=== PATIENT | male | born 1960 | race Caucasian/White ===

== ENCOUNTER 2017-09-30 12:20 | Inpatient (IN) | payer OTHER ==
[~2017-09-30] VITALS: Ht 180.3 cm; Wt 93.9 kg
[2017-09-30] VITALS (11 sets, daily range): BP systolic 115–159; BP diastolic 60–124
[2017-09-30 13:01] LABS: ABSOLUTE BASOPHIL COUNT 0 /CUMM (0.0-0.2); ABSOLUTE EOSINOPHIL COUNT 0.1 /CUMM (0.0-0.7); ABSOLUTE GRANULOCYTE CT 3.8 /CUMM (1.4-6.5); ABSOLUTE LYMPH COUNT 1.2 /CUMM (1.2-3.4); ABSOLUTE MONOCYTE COUNT 0.5 /CUMM (0.10-0.60); BASOPHIL % 0.5 % (0.0-2.0); EOSINOPHIL % 1.7 % (0-5); GRANULOCYTE % 67.5 % (42.2-75.2); HEMATOCRIT 50.3 % (42-52); MEAN CORPUSCULAR HGB 35.3 PG (27.0-31.0); MEAN CORPUSCULAR HGB CONC 34.8 G/DL (33.0-37.0); MEAN CORPUSCULAR VOLUME 101.3 FL (80.0-94.0); MEAN PLATELET VOLUME 6.4 FL (7.4-10.4); PLATELET COUNT 124 /CUMM (130-400); RBC DISTRIBUTION WIDTH 14.3 % (11.5-14.5); RED BLOOD CELL CT 4.96 /CUMM (4.70-6.10); WHITE BLOOD CELL COUNT 5.6 /CUMM (4.8-10.8)
--- NOTE | 2017-09-30 13:01 | ED GENERAL ADULT ---
History of Present Illness General Chief Complaint: ETOH/Drug Related Complaint Stated Complaint: PT REQUESTING DETOX Source: patient Exam Limitations: no limitations Vital Signs & Intake/Output Vital Signs & Intake/Output Vital Signs Date Time Temp Pulse Resp B/P B/P Pulse O2 O2 Flow FiO2 Mean Ox Delivery Rate 10/02 0941 98.0 89 22 142/100 96 Room Air 10/02 0937 98.0 89 22 148/100 10/02 0600 85 26 127/72 10/02 0400 98.0 75 26 118/70 10/02 0400 95 Room Air 10/02 0200 100 24 135/93 10/02 0000 98.0 82 16 120/70 10/02 0000 95 Room Air 10/02 0000 98.0 82 16 120/70 95 Room Air 10/01 2300 84 20 140/91 10/01 2200 84 22 141/81 10/01 2000 98.9 88 18 122/84 10/01 2000 98.9 88 18 122/84 94 Room Air 10/01 1800 90 20 130/80 10/01 1600 98.8 80 18 130/88 10/01 1600 98.8 80 18 130/88 93 Room Air 10/01 1400 82 16 139/90 10/01 1300 80 18 138/95 10 1200 97.9 84 22 140/98 03 1200 97.9 84 22 140/98 97 Room Air ED Intake and Output 10/02 0000 10/01 1200 Intake Total 1779 983 Output Total 750 375 Balance 1029 608 Intake, IV 659 923 Intake, Oral 1120 60 Number 0 0 Bowel Movements Output, Urine 750 375 Allergies Coded Allergies: NO KNOWN ALLERGIES (NONE 09/30/17) Triage Note: REQUESTING DETOX FROM ETOH. PT STATES LAST DRINK WAS LAST NIGHT. HASN'T TRIED DETOX BEFORE. DENIES SI/HI Triage Nurses Notes Reviewed? yes Onset: Abrupt Duration: day(s): (1-2), constant, continues in ED, getting worse Timing: single episode today Injury Environment: home Severity: moderate, severe No Modifying Factors: none HPI: 56-year-old male past medical history of alcohol dependence presents requesting alcohol detox. Patient states that he has been drinking daily and heavily for the past year or so. He states that he usually drinks about a half gallon of bourbon daily. Over the past 3 weeks he has tried to cut back on his drinking and is switched to drinking wine. He states that his last drink was yesterday he drank several glasses of water and a glass of bourbon. He denies any history of withdrawal seizures but states it is never detoxed completely before. He states that he feels like he has "come close" to seizures. He denies any drug use. No suicidal or homicidal ideation. No chest pain shortness of breath hemoptysis lower extremity edema recent surgery recent trauma. He does not take any medications. Has not seen a doctor in years. Currently he reports that he feels very anxious and tremulous. No nausea vomiting sweats or chills. No hallucinations. No headaches. (Dany Gomez) Reconcile Medications No Known Home Medications (Vinh NGUYEN,Radha) Past History Travel History Traveled to [place] past 21 day No Medical History Any Pertinent Medical History? see below for history Psychiatric: alcohol dependence Surgical History Surgical History: none Psychosocial History What is your primary language Macedonian Tobacco Use: Quit >30 days ago ETOH Use: heavy use Illicit Drug Use: denies illicit drug use Family History Hx Contributory? No (Dany Gomez) Review of Systems Review of Systems Constitutional: Reports: no symptoms. EENTM: Reports: no symptoms. Respiratory: Reports: no symptoms. Cardiovascular: Reports: no symptoms. GI: Reports: no symptoms. Genitourinary: Reports: no symptoms. Musculoskeletal: Reports: no symptoms. Skin: Reports: no symptoms. Neurological/Psychological: Reports: see HPI, anxiety. Hematologic/Endocrine: Reports: no symptoms. Immunologic/Allergic: Reports: no symptoms. All Other Systems: Reviewed and Negative (Dany Gomez) Physical Exam Physical Exam General Appearance: well developed/nourished, no apparent distress, alert, awake Head: atraumatic, normal appearance Eyes: Bilateral: normal appearance, PERRL, EOMI. Ears, Nose, Throat: normal pharynx, normal ENT inspection, hearing grossly normal Neck: normal inspection, supple, full range of motion Respiratory: normal breath sounds, chest non-tender, no respiratory distress, lungs clear Cardiovascular: regular rate/rhythm, normal peripheral pulses Peripheral Pulses: 2+ radial (R), 2+ radial (L) Gastrointestinal: normal bowel sounds, soft, non-tender, no organomegaly Back: normal inspection, normal range of motion Extremities: normal inspection, normal range of motion, no edema Neurologic/Psych: no motor/sensory deficits, awake, alert, oriented x 3, anxious , diffuse tremors Skin: intact, normal color, warm/dry Core Measures ACS in differential dx? No CVA/TIA Diagnosis: No Sepsis Present: No Sepsis Focused Exam Completed? No (Dany Gomez) Progress Differential Diagnoses I considered the following diagnoses in my evaluation of the patient: [Alcohol intoxication, alcohol withdrawal, drug intoxication, drug withdrawal, electrolyte abnormality] Plan of Care: Orders Procedure Date/time Status ICU LAB BUNDLE 10/02 0500 Complete CBC WITHOUT DIFFERENTIAL 10/02 0500 Complete FingerStick- Glucose 10/01 UNK Active Current Medications Sig/Marilee Start time Last Medication Dose Stop Time Status Admin Chlordiazepoxide HCl 75 MG Q4H 10/02 0400 AC 10/02 (Librium) 0935 Lorazepam 0 Q1P PRN 10/01 2300 AC 10/02 (Ativan) 1012 Omeprazole 40 MG DAILY AC 10/01 1308 AC 10/02 (Prilosec) 0642 Enoxaparin Sodium 40 MG DAILY 10/01 1000 AC 10/02 (Lovenox) 0936 Folic Acid 1 MG DAILY 10/01 1000 AC 10/02 (Folic Acid) 0935 Multivitamins 1 TAB DAILY 10/01 1000 AC 10/02 (Theragran Vitamins) 0935 Laboratory Tests 10/02/17 0355: Anion Gap 8, Estimated GFR > 60, Glucose 107 H, Calcium 8.8, Phosphorus 3.7, Magnesium 1.7, Total Bilirubin 1.1, AST 152 H, ALT 173 H, Albumin 3.2 L, CBC w Diff NO MAN DIFF REQ, RBC 3.99 L, MCV 101.9 H, MCH 35.6 H, MCHC 34.9, RDW 14.1, MPV 6.5 L, Gran % 62.3, Lymphocytes % 25.1, Monocytes % 9.8 H, Eosinophils % 2.4, Basophils % 0.4, Absolute Granulocytes 2.6, Absolute Monocytes 0.4, Absolute Eosinophils 0.1, Absolute Basophils 0 Patient seen and evaluated. He is requesting alcohol withdrawal. He has never withdrawn before. He denies any known history of withdrawal seizures. Serum alcohol level is negative. Initial CIWA is 14. Patient was medicated with 2 mg of by mouth Ativan. Patient reported only minimal improvement with this and another CIWA score came back at 15 to use medicated with 2 mg IV and 2 by mouth. Patient received another 2 mg of IV Ativan after this for another repeat CIWA 15. IV fluids also ordered. Blood work was obtained and is within normal limits other than elevated LFTs. Troponin is negative. Patient will require admission to the hospital for further evaluation and treatment of alcohol withdrawal. He'll require IV Ativan, CIWA exams, monitoring of vital signs, medication adjustment, IV fluids. Case discussed with Dr. Justice she agrees (Dany Gomez) 6:30 PM PATIENT MORE CONFUSED. PERSISTENTLY TACHYCARDIC. ATIVAN DRIP ORDERED. PATIENT UPGRADED TO ICU. D/W DR BARCENAS. (Vinh NGUYEN,Radha) Initial ED EKG: normal sinus rhythm, left atrial abn, incomplete rbbb, lafb (Dany Gomez) Departure Departure Disposition: STILL A PATIENT Condition: Stable Clinical Impression Primary Impression: Alcohol withdrawal Qualifiers: Complication of substance-induced condition: uncomplicated Qualified Code: F10.230 - Alcohol dependence with withdrawal, uncomplicated Referrals: Patient Has No Primary Care Dr (PCP/Family) Departure Forms: Customer Survey General Discharge Information Admission Note Spoke With: Kirk Barron MD Documentation of Exam: Documentation of any treatments & extenuating circumstances including Concerns Regarding Discharge (functional status, medication knowledge or non-compliance, living conditions, etc.) that warrant an admission rather than observation: [IV Ativan, CIWA exams, monitoring of vital signs, IV fluids, serial labs] (Dany Gomez) Departure Prescriptions: Current Visit Scripts No Known Home Medications PA/DIRECTOR DANCE Co-Sign Statement Statement: ED Attending supervision documentation- [X] I saw and evaluated the patient. I have also reviewed all the pertinent lab results and diagnostic results. I agree with the findings and the plan of care as documented in the PA's/DIRECTOR DANCE's documentation. [X] I have reviewed the ED Record and agree with the PA's/DIRECTOR DANCE's documentation. [] Additions or exceptions (if any) to the PAs/DIRECTOR DANCE's note and plan are summarized below: [Patient with increasing confusion despite iv ativan boluses. still tachycardic in 110's. will start on ativan drip adn admit to iCU. no history of delerium tremens or seizures.] (Radha Justice MD) Critical Care Note Critical Care Note Critical Care Time: non-applicable (Dany Gomez) Critical Care Note Critical Care Time: 30-74 min (Radha Justice MD) Statement: ED Attending supervision documentation- [X] I saw and evaluated the patient. I have also reviewed all the pertinent lab results and diagnostic results. I agree with the findings and the plan of care as documented in the PA's/DIRECTOR DANCE's documentation. [X] I have reviewed the ED Record and agree with the PA's/DIRECTOR DANCE's documentation. [] Additions or exceptions (if any) to the PAs/DIRECTOR DANCE's note and plan are summarized below: [] (Radha Justice MD) Critical Care Note Critical Care Note Critical Care Time: non-applicable (Dany Gomez)
--- NOTE | 2017-09-30 18:07 | History & Physical ---
General Information and HPI MD Statement: I have seen and personally examined ANGELIA PRECIADO and documented this H&P. The patient is a 56 year old M who presented with a patient stated chief complaint of [requesting detox]. Source of Information: patient Exam Limitations: no limitations History of Present Illness: Patient is 56 y M with PMH of alcohol abuse, presented to the ED requesting for alcohol detox. Patient reported increased amount of drinking for the last year, He noted he drinks about a half gallon of bourbon daily. He denied any any alcohol related seizure as he never really stopped drinking but noted to "become close" to seizure before. Last drink was yesterday and was smoking other drugs Baseline Allergies/Medications Allergies: Coded Allergies: NO KNOWN ALLERGIES (NONE 09/30/17) Past History Travel History Traveled to [place] past 21 day No Medical History Psychiatric: alcohol dependence Surgical History Surgical History: none Past Family/Social History Psychosocial History ETOH Use: heavy use Illicit Drug Use: denies illicit drug use Review of Systems Review of Systems Constitutional: Reports: see HPI. Exam & Diagnostic Data Last 24 Hrs of Vital Signs/I&O Vital Signs Date Time Temp Pulse Resp B/P B/P Pulse O2 O2 Flow FiO2 Mean Ox Delivery Rate 09/30 1647 114 18 136/93 97 Room Air Room Air 09/30 1646 97.8 114 18 136/93 09/30 1530 97.8 122 18 142/94 09/30 1456 97 Room Air Room Air 09/30 1441 97.5 118 18 136/90 09/30 1435 97.4 118 20 136/90 96 Room Air Room Air 09/30 1310 97.5 95 20 144/96 97 Room Air Room Air 09/30 1300 97.2 116 18 159/124 09/30 1231 97.2 116 20 159/124 98 Room Air Intake & Output 09/30 1600 09/30 0800 09/30 0000 Intake Total 1000 Output Total Balance 1000 Intake, IV 1000 Patient 190 lb Weight Weight Reported by Patient Measurement Method Assessment/Plan Assessment: VS, Ph Ex at admission: CIWA 14-15 No fever, BP 112 59/124, WA 116, RR 20 Labs at admission: Hgb 17.5, MCV 101.3, PLT 124, BEP insignificant, Niko T:2.8 , D pending, AST 2369 , ALT 272, ALK 104 U tox positive for Moriyama, serum alcohol less than 10 uA: keton positive, nit +, Niko +, Hgb traced Imagings at admission: No imaging Patient was admitted to [facility] floor for management of following conditions: Core Measures/Misc (04/10) Cerebrovascular Accident CVA/TIA Diagnosis: No
--- NOTE | 2017-09-30 19:17 | History & Physical ---
Chuck Mares 09/30/171916: General Information and HPI MD Statement: I have seen and personally examined ANGELIA PRECIADO and documented this H&P. Source of Information: patient Exam Limitations: no limitations History of Present Illness: This is a 56-year-old gentleman with past medical history significant for alcohol use disorder presented to the hospital requesting alcohol detox. According to the patient, he usually drinks about half a gallon of bourbon daily. He started to decrease amount of his drinking over the past 3 weeks and started to experience withdrawal symptoms. His last drink was yesterday. He does not report any history of alcohol withdrawal seizures. He has not been following with any physician for the past 10 years and does not have any other diagnosed medical history. However, he states that over the past few days he has been measuring his blood pressure at home and the readings are usually in the 160s systolic which were higher than his usual. He does not feel depressed and denies any suicidal or homicidal ideation. At the time of our interview, he feels very shaky and anxious. He denies any nausea, vomiting, headache, dizziness, lightheadedness, abdominal pain, urinary symptoms. Denies having any visual or auditory hallucinations. He quit smoking 7 weeks ago. Denies illicit drug use, tried marijuana for the first time today. His son is present at bedside. Allergies/Medications Allergies: Coded Allergies: NO KNOWN ALLERGIES (NONE 09/30/17) Home Med list No Known Home Medications Past History Travel History Traveled to [place] past 21 day No Medical History Psychiatric: alcohol dependence Surgical History Surgical History: none Past Family/Social History Psychosocial History ETOH Use: heavy use Illicit Drug Use: denies illicit drug use Review of Systems Review of Systems Constitutional: Reports: no symptoms. EENTM: Reports: no symptoms. Denies: blurred vision, double vision, visual changes. Cardiovascular: Denies: chest pain, edema, orthopena, palpitations, peripheral edema, syncope. Respiratory: Reports: no symptoms. Denies: cough, hemoptysis, orthopnea, short of breath, sputum production, stridor, wheezing. GI: Reports: no symptoms. Denies: abdominal pain, bloating, constipation, diarrhea, distention, bowel incontinence, melena, nausea, bloody stool, changes in stool, vomiting, steatorrhea. Genitourinary: Reports: no symptoms. Musculoskeletal: Reports: no symptoms. Skin: Reports: no symptoms. Neurological/Psychological: Reports: no symptoms. Hematologic/Endocrine: Reports: no symptoms. Immunologic/Allergic: Reports: no symptoms. Exam & Diagnostic Data Last 24 Hrs of Vital Signs/I&O Vital Signs Date Time Temp Pulse Resp B/P B/P Pulse O2 O2 Flow FiO2 Mean Ox Delivery Rate 09/30 2114 98.5 89 18 120/76 97 Room Air Room Air 09/30 2032 97.8 88 18 115/78 09/30 2032 98.8 88 29 115/78 97 Room Air Room Air 09/30 1936 98.0 110 18 138/90 09/30 1835 98.0 111 18 134/90 09/30 1725 97.9 118 18 136/90 09/30 1647 114 18 136/93 97 Room Air Room Air 09/30 1646 97.8 114 18 136/93 09/30 1530 97.8 122 18 142/94 09/30 1456 97 Room Air Room Air 09/30 1441 97.5 118 18 136/90 09/30 1435 97.4 118 20 136/90 96 Room Air Room Air 09/30 1310 97.5 95 20 144/96 97 Room Air Room Air 09/30 1300 97.2 116 18 159/124 09/30 1231 97.2 116 20 159/124 98 Room Air Intake & Output 09/30 1600 09/30 0800 09/30 0000 Intake Total 1000 Output Total Balance 1000 Intake, IV 1000 Patient 190 lb Weight Weight Reported by Patient Measurement Method Physical Exam General Appearance Alert, Oriented X3, Mild Distress, tremulous Skin No Rashes, No Breakdown, No Significant Lesion Skin Temp/Moisture Exam: Warm/Dry Sepsis Skin Exam (color): Normal for Ethnicity HEENT Atraumatic, PERRLA, EOMI, Mucous Membr. moist/pink Neck Supple, No JVD, No thryomegaly, +2 Carotid Pulse wo Bruit, No LAD Lymphatic Cervical nl Cardiovascular Regular Rate, Normal S1, Normal S2, No Murmurs, Gallops, Rubs Lungs Clear to Auscultation, Normal Air Movement Abdomen Normal Bowel Sounds, Soft, No Tenderness, No Hepatospenomegaly, No Masses Neurological Normal Speech, Strength at 5/5 X4 Ext, Normal Tone, Sensation Intact, Cranial Nerves 3-12 NL, Reflexes 2+ Extremities No Clubbing, No Cyanosis, No Edema, Normal Pulses, No Tenderness/ Swelling Vascular Normal Pulses, Pulses Symmetrical Sepsis Peripheral Pulse Location: Dorsalis Pedis Diagnostic Data EKG Results Sinus rhythm, rate 96,? Incomplete RBBB and LAFB Other Results Abdominal US: IMPRESSION: Hepatic steatosis. Borderline enlarged. Multiple echogenic foci in the spleen most likely reflect splenic calcifications typically related to prior granulomatous disease Assessment/Plan Assessment: This is a 56-year-old gentleman with past medical history significant for alcohol use disorder presented to the hospital requesting alcohol detox. He was started on Ativan drip in the ED. Was noted to have transaminitis. Problem list #Alcohol use disorder: Requesting detox #Transaminitis, abdominal ultrasound revealing hepatic steatosis #Splenic calcification #EKG revealing incomplete RBBB and LAFB Plan: As Ranked By This Provider Problem List: 1. Alcohol withdrawal Qualifiers Complication of substance-induced condition: uncomplicated Qualified Code: F10.230 - Alcohol dependence with withdrawal, uncomplicated Core Measures/Misc (04/10) Acute Coronary Syndrome ACS Diagnosis: No Congestive Heart Failure Congestive Heart Failure Diagnosis No Cerebrovascular Accident CVA/TIA Diagnosis: No VTE (View Protocol) VTE Risk Factors Age>40 No Mechanical VTE Prophylaxis d/t N/A MechProphylax Ordered No VTE Pharm Prophylaxis d/t NA PharmProphylax ordered Sepsis (View protocol) Sepsis Present: No Cassandra Manzo 10/01/17 0118: Attending MD Review Statement Attending Statement Attending MD Statement: examined this patient, discuss w/resident/PA/VALET MANAGER, agreed w/resident/PA/VALET MANAGER, discussed with family, reviewed EMR data (avail), reviewed images, amended to note Attending Assessment/Plan: CC: Alcohol detox PMH: kidney stones Patient was brought in ER by his son for all called detox. Patient has extensive alcohol history, has been drinking half a gallon of bourbon daily. Since last 3 weeks he tried to cut down on his alcohol intake on his own, last drink was yesterday, when patient's son went to see him today he did not appear appropriate, was appearing very anxious, shaky and son brought him to ER. He Never tried to detox in the past, he does not have history of alcohol related seizure. Patient denies chest pain, abdominal pain, nausea, vomiting, urinary burning, irritation, pelvic pain, headache and double vision and blurry vision. He had soft 2 bowel movements today " diarrhea". Patient states that he has been seeing things, is not specific about what, no eye dictated hallucinations, no suicidal or homicidal ideation. He had kidney stones in the past, the last episode 2001. He has not seen any physician in last 14 years, he is unaware of any medical problems. He smoked for 20 years, about half pack a day, quit 8 week back. No known drug allergies Vitals: T max 97.9, pulse 116, RR 20, blood pressure 159 on 124 on arrival improved to 144/96, saturating 98% on room air. On exam: A O 2 (patient is not oriented in time), cooperative, anxious, mild distress, tremors present, irrelevant talk, neck supple, JVD normal, no lymphadenopathy, mucosa dry, no focal neurological deficit, no dependent edema, no obvious skin rashes or inflammation CVS: S1-S2, RRR. RS: Clear to auscultate bilaterally. Abdomen: Soft, NT, ND, bowel sounds present. Abdomen ultrasound: Hepatic steatosis. Borderline enlarged. Multiple echogenic foci in the spleen most likely reflect splenic calcifications typically related to prior granulomatous disease Assessment and plan 56-year-old male with remote history of kidney stones and extensive alcohol history (more than half gallon hard liquor every day) presented in ER for all called detox. He appears Confused, not oriented in time, irrelevant talk, agitated, tremors and diaphoretic. His CIWA score ave been 14 - 17 in ER. He was persistently tachycardic while in ER. Patient was started on Ativan drip, will require ICU admission for close monitoring. Patient also has elevated bilirubin of 2.8, transaminitis (369, 272), macrocytosis 101.3, albumin 4.3 and INR 0.9. Patient appears to have mild steatohepatitis. Even though UA is positive for nitrites patient does not have any symptoms + Complicated alcohol withdrawal with delirium + All colics steatohepatitis with transaminitis and elevated bilirubin + Incomplete right bundle branch block on ECG onset of duration unclear - Admit to ICU - Every hourly vitals - Continue Ativan drip - Monitor CIWA scores - Continue high dose thiamine supplementation - Continue folic acid supplementation - Repeat ECG in a.m. - Check magnesium and phosphorus, today and tomorrow, replace if low - Repeat CBC, CMP in a.m. and INR - DVT prophylaxis - Adequate pain control - Continue oral diet - Critical care consult
[2017-09-30 20:50] LABS: PT 10.2 SEC (9.4-12.5); PTT 30 SEC (25-37)
--- NOTE | 2017-09-30 21:56 | ULTRASOUND REPORT ---
EXAMINATION: US ABDOMEN COMPLETE CLINICAL INFORMATION: Alcoholic cirrhosis hepatitis. Elevated transaminase. COMPARISON: None TECHNIQUE: Real-time imaging of the abdominal viscera. FINDINGS: PANCREAS: Obscured by bowel gas ABDOMINAL AORTA: The proximal segment is normal in caliber. INFERIOR VENA CAVA: Visualized portions are normal. LIVER: Borderline increased in size measuring 22 cm in length. Increased echogenicity compatible with steatosis. No focal abnormality. No intrahepatic or extrahepatic biliary dilatation GALLBLADDER: Only partially distended . No pericholecystic fluid gallbladder wall thickening or gallstones. COMMON BILE DUCT: Normal in caliber RIGHT KIDNEY: Normal. No hydronephrosis. No renal calculi or focal parenchymal lesions. LEFT KIDNEY: Normal. No hydronephrosis. No renal calculi or focal parenchymal lesions. SPLEEN: Multiple focal echogenic foci throughout the spleen likely reflecting calcifications. The spleen measures 13.5 cm in maximum dimension. FREE FLUID: None. IMPRESSION: Hepatic steatosis. Borderline enlarged. Multiple echogenic foci in the spleen most likely reflect splenic calcifications typically related to prior granulomatous disease
[2017-10-01] VITALS (15 sets, daily range): BP systolic 117–154; BP diastolic 79–102
--- NOTE | 2017-10-01 01:21 | Admission Certification ---
Admission Certification Certification Statement - As attending physician, I certify that at the time of - admission, based on clinical presentation, severity of - symptoms, need for further diagnostic testing and - therapeutic interventions, and risk of adverse outcomes - without in-hospital treatment, in my clinical assessment, - this patient requires an acute hospital stay for a minimum - of two nights or longer. I have also considered psychsocial - factors such as support system, advanced age, financial - issues, cognitive issues, and failed out-patient treatments, - past re-admission history, safety of patient, and lack of - compliance as applicable. Specific rationale supporting this admission is: severe alcohol withdrawal with delirium
--- NOTE | 2017-10-01 08:30 | PN- CRCU ---
Subjective HPI/Critical Care Issues: Seen and examined Alert awake slightly confused Afebrile In normal sinus rhythm On 4 mg of Ativan Blood pressure is normal Continues to be on intravenous fluids Adequate urine output SIGNIFICANT DATA Blood work reviewed Hemoglobin elevated MCV was elevated INR normal Liver enzymes elevated B12 normal Objective Current Medications: Current Medications Sig/Marilee Start time Last Medication Dose Route Stop Time Status Admin Ceftriaxone Sodium 2,000 MG DAILY 10/01 1000 AC IV Ceftriaxone Sodium 1,000 MG ONCE ONE 09/30 2345 DC 10/01 IV 09/30 2346 0015 Cyanocobalamin/ 1 BAG ONCE ONE 09/30 1900 DC 09/30 Thiamine/Pyridoxine IV 10/01 0259 1943 Dextrose/Water 1,000 ML Enoxaparin Sodium 40 MG DAILY 10/01 1000 AC SC Lorazepam 50 MG Q12H 10/01 1000 AC Dextrose/Water 500 ML IV Lorazepam 0 .STK-MED ONE 09/30 1849 DC PO Lorazepam 0 .STK-MED ONE 09/30 1833 DC .ROUTE Lorazepam 2 MG ONE ONE 09/30 1830 DC 09/30 IV 09/30 1831 1833 Lorazepam 50 MG ONCE ONE 09/30 1830 DC 09/30 Dextrose/Water 500 ML IV 09/30 1831 1943 Lorazepam See Dose Q1P PRN 09/30 1800 DC Insts (1) IV Lorazepam 2 MG Q6H 09/30 1800 DC 09/30 PO 1833 Lorazepam 0 .STK-MED ONE 09/30 1719 CAN .ROUTE Lorazepam 2 MG ONE ONE 09/30 1715 DC 09/30 IV 09/30 1716 1727 Lorazepam 2 MG Q2P PRN 09/30 1715 CAN IV Lorazepam 0 .STK-MED ONE 09/30 1542 DC PO Lorazepam 0 .STK-MED ONE 09/30 1542 DC .ROUTE Lorazepam 2 MG ONCE ONE 09/30 1530 DC 09/30 IV 09/30 1531 1547 Lorazepam 2 MG ONCE ONE 09/30 1530 DC 09/30 PO 09/30 1531 1547 Lorazepam 0 .STK-MED ONE 09/30 1335 DC PO Lorazepam 2 MG ONCE ONE 09/30 1330 DC 09/30 PO 09/30 1331 1332 Magnesium Sulfate 1 GM ONCE ONE 10/01 0215 DC 10/01 Dextrose/Water 100 ML IV 10/01 0614 0309 Sodium Chloride 1,000 ML BOLUS ONE 09/30 1745 DC / IV 09/30 1844 1833 Sodium Chloride 1,000 ML BOLUS ONE 09/30 1445 DC / IV 09/30 1544 1455 Thiamine HCl 200 MG BID 09/300 AC 10/01 PO 10/02 1001 0012 Dose Instructions: (1)Lorazepam: See admin criteria Vital Signs & I&O Last 24 Hrs of Vitals and I&O: Vital Signs Date Time Temp Pulse Resp B/P B/P Pulse O2 O2 Flow FiO2 Mean Ox Delivery Rate 10/01 0600 79 29 151/92 10/01 0400 96.3 80 28 129/84 10/01 0400 96 Room Air Room Air 10/01 0200 82 24 117/79 10/01 0000 97.2 79 25 119/84 03 0000 97 Room Air Room Air 09/30 2300 97.2 79 25 124/60 97 Room Air Room Air 09/30 2200 97.8 94 20 116/88 09/30 2200 92 Room Air Room Air 09/30 2115 98.5 89 18 120/76 97 Room Air Room Air 09/30 2033 97.8 88 18 115/78 09/30 2033 98.8 88 29 115/78 97 Room Air Room Air 09/30 1936 98.0 110 18 138/90 09/30 1835 98.0 111 18 134/90 09/30 1725 97.9 118 18 136/90 09/30 1647 114 18 136/93 97 Room Air Room Air 09/30 1646 97.8 114 18 136/93 09/30 1530 97.8 122 18 142/94 09/30 1456 97 Room Air Room Air 09/30 1441 97.5 118 18 136/90 09/30 1435 97.4 118 20 136/90 96 Room Air Room Air 09/30 1310 97.5 95 20 144/96 97 Room Air Room Air 09/30 1300 97.2 116 18 159/124 09/30 1231 97.2 116 20 159/124 98 Room Air Intake & Output 10/01 1600 10/01 0800 03 0000 Intake Total 983 443 Output Total 375 0 Balance 608 443 Intake, IV 923 443 Intake, Oral 60 Number 0 0 Bowel Movements Output, Urine 375 0 Patient 207 lb Weight Weight Bed scale Measurement Method Impression/Plan Impression/Plan Impression/Plan: General Appearance Alert, Oriented X3, Mild Distress, tremulous Skin No Rashes, No Breakdown, No Significant Lesion Skin Temp/Moisture Exam: Warm/Dry Sepsis Skin Exam (color): Normal for Ethnicity HEENT Atraumatic, PERRLA, EOMI, Mucous Membr. moist/pink Neck Supple, No JVD, No thryomegaly, +2 Carotid Pulse wo Bruit, No LAD Lymphatic Cervical nl Cardiovascular Regular Rate, Normal S1, Normal S2, No Murmurs, Gallops, Rubs Lungs Clear to Auscultation, Normal Air Movement Abdomen Normal Bowel Sounds, Soft, No Tenderness, No Hepatospenomegaly, No Masses Neurological Normal Speech, Strength at 5/5 X4 Ext, Normal Tone, Sensation Intact, Cranial Nerves 3-12 NL, Reflexes 2+ Extremities No Clubbing, No Cyanosis, No Edema, Normal Pulses, No Tenderness/ Swelling Vascular Normal Pulses, Pulses Symmetrical Impression This is a gentleman with significant history of alcohol abuse came into the hospital for alcohol detox now going through alcohol withdrawal requiring intravenous Ativan. Issues include * Alcohol abuse now with active alcohol withdrawal syndrome with delirium tremens * Transaminitis due to alcoholism with preserved synthetic function of the liver * Splenic calcifications consistent with old granulomatous disease * EKG showing some abnormality. RECOMMENDATION * Discontinue antibiotics * Start him on Librium 100 mg every 6 hours [id number] and 2 hours after the Librium if the patient is stable his lorazepam drip can be stopped and can use lorazepam when necessary prn IV * Continue other medications * Keep his head of bed elevated * Start proton pump inhibitor by mouth * Low-dose beta isaias can be used if he is hypertensive and tachycardic.
--- NOTE | 2017-10-01 08:32 | PN- Resident CRCU ---
Subjective HPI/CRCU Issues: Pt in ICU for etoh withdrawl and ativan drip. Not intubated currently. When I spoke with pt he was only alert to self not to place or time/date. He was on ativan drip at 4 units/hr. He was significantly somnolent when I saw him. No complaints or overnight events. 24 Hour Events: Last CIWA scores: //06/04 Vitals: Tmax 97.8, HR 79-84, RR 20-33, BP manual between 100/68-124/60, On RA satting 94-97% Total In 1426. Total out 375 ABD US: IMPRESSION: Hepatic steatosis. Borderline enlarged. Multiple echogenic foci in the spleen most likely reflect splenic calcifications typically related to prior granulomatous disease Labs pertinent for Hb 17.5m MCV 101.3, PLT 124. BMP WNL BUN 13 and Cr .7. AST 205, ALT 194, Alb 3.0, Tbil 1.4, Utox + for cannabis, negative serum alcohol. Objective Vital Signs & I&O Last 8 Hrs of Vitals and I&O: -- Exam General Appearance: sedated, intoxicated Head: atraumatic, normal appearance Ears, Nose, Throat: normal pharynx Neck: normal inspection, supple, full range of motion Respiratory: normal breath sounds, chest non-tender Cardiovascular: regular rate/rhythm Gastrointestinal: soft, non-tender Extremities: normal inspection, no edema IV Drips IV Drips: ativan Current Medications: Current Medications Sig/Marilee Start time Last Medication Dose Route Stop Time Status Admin Ceftriaxone Sodium 2,000 MG DAILY 10/01 1000 DC IV Ceftriaxone Sodium 1,000 MG ONCE ONE 09/30 2345 DC 10/01 IV 09/30 2346 0015 Chlordiazepoxide HCl 100 MG Q6 10/01 1307 AC PO Cyanocobalamin/ 1 BAG ONCE ONE 09/30 1900 DC 09/30 Thiamine/Pyridoxine IV 10/01 0259 1943 Dextrose/Water 1,000 ML Enoxaparin Sodium 40 MG DAILY 10/01 1000 AC 10/01 SC 0915 Folic Acid 1 MG DAILY 10/01 1000 AC 10/01 PO 0946 Lorazepam 50 MG Q12H 10/01 1000 DC 10/01 Dextrose/Water 500 ML IV 1239 Lorazepam 0 .STK-MED ONE 09/30 1849 DC PO Lorazepam 0 .STK-MED ONE 09/30 1833 DC .ROUTE Lorazepam 2 MG ONE ONE 09/30 1830 DC 09/30 IV 09/30 1831 1833 Lorazepam 50 MG ONCE ONE 09/30 1830 DC 09/30 Dextrose/Water 500 ML IV 09/30 1831 1943 Lorazepam See Dose Q1P PRN 09/30 1800 DC Insts (1) IV Lorazepam 2 MG Q6H 09/30 1800 DC 09/30 PO 1833 Lorazepam 0 .STK-MED ONE 09/30 1719 CAN .ROUTE Lorazepam 2 MG ONE ONE 09/30 1715 DC 09/30 IV 09/30 1716 1727 Lorazepam 2 MG Q2P PRN 09/30 1715 CAN IV Lorazepam 0 .STK-MED ONE 09/30 1542 DC PO Lorazepam 0 .STK-MED ONE 09/30 1542 DC .ROUTE Lorazepam 2 MG ONCE ONE 09/30 1530 DC 09/30 IV 09/30 1531 1547 Lorazepam 2 MG ONCE ONE 09/30 1530 DC 09/30 PO 09/30 1531 1547 Lorazepam 0 .STK-MED ONE 09/30 1335 DC PO Lorazepam 2 MG ONCE ONE 09/30 1330 DC 09/30 PO 09/30 1331 1332 Magnesium Sulfate 1 GM ONCE ONE 10/01 0215 DC 10/01 Dextrose/Water 100 ML IV 10/01 0614 0309 Multivitamins 1 TAB DAILY 10/01 1000 AC 10/01 PO 0946 Omeprazole 40 MG DAILY AC 10/01 1308 AC PO Sodium Chloride 1,000 ML BOLUS ONE 09/30 1745 DC 09/30 IV 09/30 1844 1833 Sodium Chloride 1,000 ML BOLUS ONE 09/30 1445 DC 09/30 IV 09/30 1544 1455 Thiamine HCl 200 MG BID 09/30 2200 AC 10/01 PO 10/02 1001 0915 Dose Instructions: (1)Lorazepam: See admin criteria Impression/Plan Impression/Problem List Impression: ASSESSMENT:This is a 56 yo male with no known medical conditions due to lack of medical follow up, but w/hx of etoh abuse w/o DT or prior ICU admission who comes in for CC etoh detox. Utox also positive for marijuana. Pt is admitted to ICU for ativan drip and possible intubation. PLAN: 1. Etoh Detox: Last CIWA scores: //06/04. Vitals otherwise stable. B12 and Folate lvl WNL. Nml TSH. Negative lipase. * Switch from IV ativan to PO Librium 100 q6 * Can give ativan pushes PRN * Got 1 banana bag * Started on Thiamine, folic acid and multivite * Monitor mag and phos; replete as necessary 2. Transamanitis: AST 369, ALT 272. Liver US "Shows Borderline increased in size measuring 22 cm in length. Increased echogenicity compatible with steatosis. No focal abnormality. No intrahepatic or extrahepatic biliary dilatation." AST>ALT suggesting etoh related liver disease. * Con't monitor * If con't elevate will consider Hep panel 3. Hyperbilirubinemia: His Tbili 2.8 and Dbili .9. He is having elevated unconjugated bili suggesting either hemolysis, or reduced uptake. * Con't monitor 3. Hypertension: This evening max BP 154/102. Unsure if this is underlying hypertension or etoh withdrawl. Will consider starting low dose BB if con't to be hypertensive and tachycardic and unresponsive to ativan. 4. MCV: MCV 101, Likely due to etoh. B12/Folate wnl. * Con't vitamin supplementation 5. Thrombocytopenia:Today at 124. * Cont monitor 6. Incidental finding: Abd US shows "splenic calcifications typically related to prior granulomatous disease" * Follow up out pt. Problem List: 1. Alcohol withdrawal Pain Ratin Tomorrow's Labs & Rationales: ICU CBC Plan DVT/Prophylaxis: pharmacological
--- NOTE | 2017-10-01 13:38 | Cons- Psychiatry ---
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 " HPI: 56 y/o CM with longstanding history of alcohol use disorder with daily drinking presents to ED with son requesting EtOH detox. 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 Demonstrated signs and sx's of EtOH withdrawal syndrome with AMS and was admitted to ICU for treatment. PSychiatry consulted for assistance in treatment of AUD. CIWAs 18<--19<--13<--11<--11<--4<--5 I interviewed Mr. Mantilla this morning in the ICU. He was pleasant and generally cooperative however was confused, mildly somnolent. At that time he was on ativan drip 5 mg/hr and moderately tremulous. He was unable to engage in a meaningful interview though he did report feeling confused. I was unable to get a clear history of his alcohol drinking, however, he says that he began drinking as a teenager, including starting the morning with alcohol. Per notes he told the admitting team he was drinking half gallon bourbon daily. I asked him why he chose now to stop drinking and he replied "enough was enough". He reports occasional cannabis use but denies other illicits. When I asked about hallucinations says "hmm, well, I don't think so". Regarding safety, he denies any current suicidal or homicidal ideation. Denies any history of suicide attempts or violence. He was perseverative on his "witch of an ex" and not being able to see his "grand girl" because she lives in [place]. Unable to elicit meaningful PMH or past psychiatric history, though did report seeking some counseling at time of divorce, ~28 years ago. Denies curent treatment. He denied seeking previous alcohol use treatment. Denies any outpatient psychotropics. Unable to participate in ROS due to confusion and somnolence. MSE: adequately groomed mildly diaphoretic CM, moderately tremulous, sitting on hospital bed. Some behavioral disorganization (for example, took my pen and began drawing squares on a napkin but unable to identify a purpose for this), speech slowed, mood "uh ok I think" affect constricted, TP was disorganized, content without SI/HI, denies perceptual disturbance. Cognition: alert though mildly somnolent, oriented to name, not oriented to date or hospital ("I should know where I am, many of my family members have at this hospital). Insight and judgement is limited. PErtinent labs/studies: MCV 101 Plt 124 AST/ALT 369/272 on admission, tbili 2.8/dbili 0.9 INR 0.94 U/A: +protein, ketones, nitrites, bacteria, trace Hgb Chemistry wnl TSH 2.1 Lipase 277 B12 929 Abd U/S: Hepatic steatosis. Borderline enlarged. Multiple echogenic foci in the spleen most likely reflect splenic calcifications typically related to prior granulomatous disease Impression: Alcohol use disorder with alcohol withdrawal syndrome c/b delirium. AUD is complicated by acute liver pathology and steatosis. Due to altered mental status, am unable to conduct a meaningful psychiatric interview at this time, however there is no current suggestion or suggestion from documentation on presentation that the patient demonstrated any acute dangerousness such as SI or HI. Recommendations: - At this time I do not see evidence of imminent dangerousness from a psychiatric perspective though the interview was highly limited by altered mental status. He is certainly at fall risk. - Continue to aggressively treat alcohol withdrawal syndrome with IV benzodiazepines as you are doing. His CIWAs and BP accompanied by AMS demonstrate severe alcohol withdrawal and may need to consider alternative treatment options if these continue to worsen, such as phenobarb or propofol. Would recommend use of non-hepatically metabolized benzodiazepine such as lorazepam given liver pathology - Would suggest high dose parenteral thiamine repletion as well as MVI and folate for at least first 2-3 days of alcohol withdrawal admission - If agitated, can use haldol 2 mg IM q4H as needed. Monitor QTc and maintain K> 4 Mg>2. - Agree with social work consult re: alcohol use treatment - Psychiatry will follow up as needed - Thank you for this consult
[2017-10-02] VITALS (15 sets, daily range): BP systolic 118–154; BP diastolic 70–105
[2017-10-02 04:43] LABS: ABSOLUTE BASOPHIL COUNT 0 /CUMM (0.0-0.2); ABSOLUTE EOSINOPHIL COUNT 0.1 /CUMM (0.0-0.7); ABSOLUTE GRANULOCYTE CT 2.6 /CUMM (1.4-6.5); ABSOLUTE MONOCYTE COUNT 0.4 /CUMM (0.10-0.60); BASOPHIL % 0.4 % (0.0-2.0); EOSINOPHIL % 2.4 % (0-5); GRANULOCYTE % 62.3 % (42.2-75.2); MEAN CORPUSCULAR HGB 35.6 PG (27.0-31.0); MEAN CORPUSCULAR HGB CONC 34.9 G/DL (33.0-37.0); MEAN CORPUSCULAR VOLUME 101.9 FL (80.0-94.0); MEAN PLATELET VOLUME 6.5 FL (7.4-10.4); PLATELET COUNT 81 /CUMM (130-400); RBC DISTRIBUTION WIDTH 14.1 % (11.5-14.5); RED BLOOD CELL CT 3.99 /CUMM (4.70-6.10); WHITE BLOOD CELL COUNT 4.2 /CUMM (4.8-10.8)
[2017-10-02 05:19] LABS: HEMATOCRIT 40.7 % (42-52)
--- NOTE | 2017-10-02 11:05 | PN- Resident CRCU ---
Subjective HPI/CRCU Issues: Patient was seen and examined. He offers no complaints. Denies any nausea, vomiting, headache, dizziness, lightheadedness, chest pain, shortness of breath. Ativan drip has been discontinued. The patient is on Librium and IV Ativan per JAMALWA. Vital signs remain stable. Had a drop in his platelets to 81. Objective Vital Signs & I&O Last 8 Hrs of Vitals and I&O: Vital Signs Date Time Temp Pulse Resp B/P B/P Pulse O2 O2 Flow FiO2 Mean Ox Delivery Rate 10/02 0941 98.0 89 22 142/100 96 Room Air 10/02 0937 98.0 89 22 148/100 10/02 0600 85 26 127/72 10/02 0400 98.0 75 26 118/70 10/02 0400 95 Room Air 10/02 0200 100 24 135/93 10/02 0000 98.0 82 16 120/70 10/02 0000 95 Room Air 10/02 0000 98.0 82 16 120/70 95 Room Air 10/01 2300 84 20 140/91 10/01 2200 84 22 141/81 10/02 1999 98.9 88 18 122/84 10/02 1999 98.9 88 18 122/84 94 Room Air 10/01 1800 90 20 130/80 10/01 1600 98.8 80 18 130/88 10/01 1600 98.8 80 18 130/88 93 Room Air Intake & Output 10/02 1600 10/02 0800 10/02 0000 Intake Total 80 795 Output Total 900 400 Balance -820 395 Intake, IV 30 235 Intake, Oral 50 560 Number 0 Bowel Movements Output, Urine 900 400 Exam General Appearance: no apparent distress, alert, awake, comfortable Other Physical Findings: Skin No Rashes, No Breakdown, No Significant Lesion HEENT Atraumatic, PERRLA, EOMI, Mucous Membr. moist/pink Neck Supple, No JVD, No thryomegaly, +2 Carotid Pulse wo Bruit, No LAD Lymphatic Cervical nl Cardiovascular Regular Rate, Normal S1, Normal S2, No Murmurs, Gallops, Rubs Lungs Clear to Auscultation, Normal Air Movement Abdomen Normal Bowel Sounds, Soft, No Tenderness, No Hepatospenomegaly, No Masses Neurological Normal Speech, Strength at 5/5 X4 Ext, Normal Tone, Sensation Intact, Cranial Nerves 3-12 NL, Reflexes 2+ Extremities No Clubbing, No Cyanosis, No Edema, Normal Pulses, No Tenderness/ Swelling Vascular Normal Pulses, Pulses Symmetrical Current Medications: Current Medications Sig/Marilee Start time Last Medication Dose Route Stop Time Status Admin Chlordiazepoxide HCl 75 MG Q4H 10/02 0400 AC 10/02 PO 1323 Chlordiazepoxide HCl 75 MG Q4 10/02 0022 DC 10/02 PO 0029 Chlordiazepoxide HCl 75 MG Q4P PRN 10/01 2245 DC PO Chlordiazepoxide HCl 100 MG Q6 10/01 1307 DC 10/01 PO 1833 Enoxaparin Sodium 40 MG DAILY 10/01 1000 AC 10/02 SC 0936 Folic Acid 1 MG DAILY 10/01 1000 AC 10/02 PO 0935 Lorazepam 0 Q1P PRN 10/01 2300 AC 10/02 IV 1012 Multivitamins 1 TAB DAILY 10/01 1000 AC 10/02 PO 0935 Omeprazole 40 MG DAILY AC 10/01 1308 AC 10/02 PO 0642 Thiamine HCl 200 MG BID 09/30 2200 DC 10/02 PO 10/02 1001 0935 Impression/Plan Impression/Problem List Impression: his is a 56-year-old gentleman with past medical history significant for alcohol use disorder presented to the hospital requesting alcohol detox. He was started on Ativan drip in the ED and was admitted to the ICU. Problem list #Alcohol use disorder: Requesting detox #Transaminitis, abdominal ultrasound revealing hepatic steatosis #Splenic calcification #Thrombocytopenia: new #EKG revealing incomplete RBBB and LAFB Plan: his splenic calcification as an outpatient. Problem List: 1. Alcohol withdrawal Pain Ratin Tomorrow's Labs & Rationales: CBC to monitor H&H and platelets BEP to monitor electrolytes Plan DVT/Prophylaxis: pharmacological
--- NOTE | 2017-10-02 11:32 | PN- CRCU ---
Subjective HPI/Critical Care Issues: Looks and feels good Off Ativan drip Did receive one bolus of Ativan this morning Vital signs reviewed afebrile on room air blood pressure is adequate Significant data Reviewed BUN 7 creatinine stable his liver enzymes are trending down white count improved to 4.2 hemoglobin 14.2 MCV elevated Platelets have trended down to 81 admission Laboratory Tests 10/02 10/01 10/01 0355 0451 0451 Chemistry Sodium (137 - 145 mmol/L) 136 L 141 Potassium (3.5 - 5.1 mmol/L) 3.9 3.8 Chloride (98 - 107 mmol/L) 104 106 Carbon Dioxide (22 - 30 mmol/L) 24 25 Anion Gap (5 - 16) 8 10 BUN (9 - 20 mg/dL) 7 L 13 Creatinine (0.7 - 1.2 mg/dL) 0.7 0.7 Estimated GFR (>60 ml/min) > 60 > 60 Glucose (65 - 99 mg/dL) 107 H 110 H Calcium (8.4 - 10.2 mg/dL) 8.8 8.1 L Phosphorus (2.5 - 4.5 mg/dL) 3.7 3.6 3.7 Magnesium (1.6 - 2.3 mg/dL) 1.7 2.0 2.0 Total Bilirubin (0.2 - 1.3 mg/dL) 1.1 1.4 H 1.5 H Direct Bilirubin (< 0.4 mg/dL) 0.5 H AST (17 - 59 U/L) 152 H 205 H 217 H ALT (21 - 72 U/L) 173 H 194 H 200 H Alkaline Phosphatase (< 127 U/L) 77 Total Protein (6.3 - 8.2 g/dL) 5.6 L Albumin (3.5 - 5.0 g/dL) 3.2 L 3.0 L 3.1 L Hematology CBC w Diff NO MAN DIFF REQ WBC (4.8 - 10.8 /CUMM) 4.2 L RBC (4.70 - 6.10 /CUMM) 3.99 L Hgb (14.0 - 18.0 G/DL) 14.2 Hct (42 - 52 %) 40.7 L MCV (80.0 - 94.0 FL) 101.9 H MCH (27.0 - 31.0 PG) 35.6 H MCHC (33.0 - 37.0 G/DL) 34.9 RDW (11.5 - 14.5 %) 14.1 Plt Count (130 - 400 /CUMM) 81 L MPV (7.4 - 10.4 FL) 6.5 L Gran % (42.2 - 75.2 %) 62.3 Lymphocytes % (20.5 - 51.1 %) 25.1 Monocytes % (1.7 - 9.3 %) 9.8 H Eosinophils % (0 - 5 %) 2.4 Basophils % (0.0 - 2.0 %) 0.4 Absolute Granulocytes (1.4 - 6.5 /CUMM) 2.6 Absolute Monocytes (0.10 - 0.60 /CUMM) 0.4 Absolute Eosinophils (0.0 - 0.7 /CUMM) 0.1 Absolute Basophils (0.0 - 0.2 /CUMM) 0 0309/30 1305 Coagulation PT Cancelled INR Cancelled APTT Cancelled Toxicology Urine Opiates Screen (>2000 NG/ML) < 100 Methadone Screen (>300 NG/ML) < 40 Barbiturate Screen (>200 NG/ML) < 60 Ur Phencyclidine Scrn (>25 NG/ML) < 6.00 Amphetamines Screen (>1000 NG/ML) < 100 U Benzodiazepines Scrn (>200 NG/ML) < 85 Urine Cocaine Screen (>300 NG/ML) < 50 Urine Cannabis Screen (>50 NG/ML) 76.30 H Urines Urinalysis LIGHT H Urine Color (YEL,AMB,STR) DIVINE Urine Clarity (CLEAR) HAZY H Urine pH (5.0 - 8.0) 5.5 Ur Specific [place] (1.001 - 1.035) >= 1.030 Urine Protein (NEG,<30 MG/DL) 100 H Urine Ketones (NEG) 15 H Urine Nitrite (NEG) POS H Urine Bilirubin (NEG) POS@ICTO H Urine Urobilinogen (0.1 - 1.0 EU/dl) 1.0 Ur Leukocyte Esterase (NEG) NEG Ur Microscopic SEDIMENT EXAMINED Urine RBC (0 - 5 /HPF) RARE Ur Epithelial Cells (NONE,FEW) FEW Urine Bacteria (NEG/NONE) MOD H Granular Casts (NONE /LPF) RARE H Urine Mucus (FEW,NONE) MOD H Urine Hemoglobin (NEG) TRACE-LYSED H Urine Glucose (N MG/DL) NEG 09/30 1253 Chemistry Sodium (137 - 145 mmol/L) 140 Potassium (3.5 - 5.1 mmol/L) 4.6 Chloride (98 - 107 mmol/L) 102 Carbon Dioxide (22 - 30 mmol/L) 27 Anion Gap (5 - 16) 11 BUN (9 - 20 mg/dL) 12 Creatinine (0.7 - 1.2 mg/dL) 0.8 Estimated GFR (>60 ml/min) > 60 BUN/Creatinine Ratio (7 - 25 %) 15.0 Glucose (65 - 99 mg/dL) 131 H Hemoglobin A1c (4.2 - 5.8 %) 5.2 Calcium (8.4 - 10.2 mg/dL) 9.6 Phosphorus (2.5 - 4.5 mg/dL) 4.0 Magnesium (1.6 - 2.3 mg/dL) 1.6 Total Bilirubin (0.2 - 1.3 mg/dL) 2.8 H Direct Bilirubin (< 0.4 mg/dL) 0.9 H AST (17 - 59 U/L) 369 H ALT (21 - 72 U/L) 272 H Alkaline Phosphatase (< 127 U/L) 104 Troponin I (<0.11 ng/ml) < 0.01 Total Protein (6.3 - 8.2 g/dL) 7.3 Albumin (3.5 - 5.0 g/dL) 4.3 Globulin (1.9 - 4.2 gm/dL) 3.0 Albumin/Globulin Ratio (1.1 - 2.2 %) 1.4 Lipase (23 - 300 U/L) 277 Vitamin B12 (239 - 931 pg/mL) 929 Folate (2.76 - 20.0 ng/mL) 12.7 TSH (0.270 - 4.200 uIU/mL) 2.110 Thyroxine (T4) (4.5 - 10.9 ug/dL) 9.3 Total T3 (0.97 - 1.69 ng/mL) 1.57 Coagulation PT (9.4 - 12.5 SEC) 10.2 INR (0.90 - 1.17) 0.94 APTT (25 - 37 SEC) 30 Hematology CBC w Diff NO MAN DIFF REQ WBC (4.8 - 10.8 /CUMM) 5.6 RBC (4.70 - 6.10 /CUMM) 4.96 Hgb (14.0 - 18.0 G/DL) 17.5 Hct (42 - 52 %) 50.3 MCV (80.0 - 94.0 FL) 101.3 H MCH (27.0 - 31.0 PG) 35.3 H MCHC (33.0 - 37.0 G/DL) 34.8 RDW (11.5 - 14.5 %) 14.3 Plt Count (130 - 400 /CUMM) 124 L MPV (7.4 - 10.4 FL) 6.4 L Gran % (42.2 - 75.2 %) 67.5 Lymphocytes % (20.5 - 51.1 %) 22.2 Monocytes % (1.7 - 9.3 %) 8.1 Eosinophils % (0 - 5 %) 1.7 Basophils % (0.0 - 2.0 %) 0.5 Absolute Granulocytes (1.4 - 6.5 /CUMM) 3.8 Absolute Lymphocytes (1.2 - 3.4 /CUMM) 1.2 Absolute Monocytes (0.10 - 0.60 /CUMM) 0.5 Absolute Eosinophils (0.0 - 0.7 /CUMM) 0.1 Absolute Basophils (0.0 - 0.2 /CUMM) 0 Toxicology Serum Alcohol (<10 MG/DL) < 10.0 Microbiology Date/Time Procedure - Status Source Growth 10/01 418 Urine Culture - RES URINE ROUT 10/01 2139 Surveillance Culture - RECD UPPER RESP 10/01 2139 Surveillance Culture - RECD GI 10/01 2011 Urine Culture - COMP URINE ROUT Objective Current Medications: Current Medications Sig/Marilee Start time Last Medication Dose Route Stop Time Status Admin Chlordiazepoxide HCl 75 MG Q4H 10/02 0400 AC 10/02 PO 0935 Chlordiazepoxide HCl 75 MG Q4 10/02 0022 DC 10/02 PO 0029 Chlordiazepoxide HCl 75 MG Q4P PRN 10/01 2245 DC PO Chlordiazepoxide HCl 100 MG Q6 10/01 1307 DC 10/01 PO 1833 Enoxaparin Sodium 40 MG DAILY 10/01 1000 AC 10/02 SC 0936 Folic Acid 1 MG DAILY 10/01 1000 AC 10/02 PO 0935 Lorazepam 0 Q1P PRN 10/01 2300 AC 10/02 IV 1012 Lorazepam 50 MG Q12H 10/01 1000 DC 10/01 Dextrose/Water 500 ML IV 1239 Multivitamins 1 TAB DAILY 10/01 1000 AC 10/02 PO 0935 Omeprazole 40 MG DAILY AC 10/01 1308 AC 10/02 PO 0642 Thiamine HCl 200 MG BID 09/30 2200 DC 10/02 PO 10/02 1001 0935 Vital Signs & I&O Last 24 Hrs of Vitals and I&O: Vital Signs Date Time Temp Pulse Resp B/P B/P Pulse O2 O2 Flow FiO2 Mean Ox Delivery Rate 10/02 0941 98.0 89 22 142/100 96 Room Air 10/02 0937 98.0 89 22 148/100 10/02 0600 85 26 127/72 10/02 0400 98.0 75 26 118/70 10/02 0400 95 Room Air 10/02 0200 100 24 135/93 10/02 0000 98.0 82 16 120/70 10/02 0000 95 Room Air 10/02 0000 98.0 82 16 120/70 95 Room Air 10/01 2300 84 20 140/91 10/01 2200 84 22 141/81 10/02 1999 98.9 88 18 122/84 10/01 2000 98.9 88 18 122/84 94 Room Air 10/01 1800 90 20 130/80 10/01 1600 98.8 80 18 130/88 10/01 1600 98.8 80 18 130/88 93 Room Air 10/01 1400 82 16 139/90 10/01 1300 80 18 138/95 10/01 1200 97.9 84 22 140/98 10/01 1200 97.9 84 22 140/98 97 Room Air Intake & Output 10/02 1600 10/02 0800 10/02 0000 Intake Total 80 795 Output Total 900 400 Balance -820 395 Intake, IV 30 235 Intake, Oral 50 560 Number 0 Bowel Movements Output, Urine 900 400 Impression/Plan Impression/Plan Impression/Plan: General Appearance Alert, Oriented X3, Mild Distress, tremulous better Skin No Rashes, No Breakdown, No Significant Lesion Skin Temp/Moisture Exam: Warm/Dry Sepsis Skin Exam (color): Normal for Ethnicity HEENT Atraumatic, PERRLA, EOMI, Mucous Membr. moist/pink Neck Supple, No JVD, No thryomegaly, +2 Carotid Pulse wo Bruit, No LAD Lymphatic Cervical nl Cardiovascular Regular Rate, Normal S1, Normal S2, No Murmurs, Gallops, Rubs Lungs Clear to Auscultation, Normal Air Movement Abdomen Normal Bowel Sounds, Soft, No Tenderness, No Hepatospenomegaly, No Masses Neurological Normal Speech, Strength at 5/5 X4 Ext, Normal Tone, Sensation Intact, Cranial Nerves 3-12 NL, Reflexes 2+ Extremities No Clubbing, No Cyanosis, No Edema, Normal Pulses, No Tenderness/ Swelling Vascular Normal Pulses, Pulses Symmetrical Impression This is a gentleman with significant history of alcohol abuse came into the hospital for alcohol detox now going through alcohol withdrawal requiring intravenous Ativan initially Issues include * Alcohol abuse now with active alcohol withdrawal syndrome with delirium tremens * Transaminitis due to alcoholism with preserved synthetic function of the liver * Splenic calcifications consistent with old granulomatous disease * EKG showing some abnormality no acute coronary issues * Thrombocytopenia, new prob due to hyper splenism RECOMMENDATION * Cont librium q4 and hold for sedation * Continue other medications * Dc lovenox and watch platelets, and check cbc in am * Use venodyne boots * proton pump inhibitor by mouth * Low-dose beta isaias can be used if he is hypertensive and tachycardic. Ok to the floor
[2017-10-03 05:46] VITALS: BP 144/96
[2017-10-03 08:21] LABS: ABSOLUTE BASOPHIL COUNT 0 /CUMM (0.0-0.2); ABSOLUTE EOSINOPHIL COUNT 0.1 /CUMM (0.0-0.7); ABSOLUTE GRANULOCYTE CT 3.9 /CUMM (1.4-6.5); ABSOLUTE LYMPH COUNT 1.4 /CUMM (1.2-3.4); ABSOLUTE MONOCYTE COUNT 0.7 /CUMM (0.10-0.60); BASOPHIL % 0.2 % (0.0-2.0); EOSINOPHIL % 2.4 % (0-5); GRANULOCYTE % 62.9 % (42.2-75.2); HEMATOCRIT 43.7 % (42-52); MEAN CORPUSCULAR HGB 35.1 PG (27.0-31.0); MEAN CORPUSCULAR HGB CONC 34.6 G/DL (33.0-37.0); MEAN CORPUSCULAR VOLUME 101.5 FL (80.0-94.0); MEAN PLATELET VOLUME 6.5 FL (7.4-10.4); PLATELET COUNT 95 /CUMM (130-400); RBC DISTRIBUTION WIDTH 14.5 % (11.5-14.5); WHITE BLOOD CELL COUNT 6.3 /CUMM (4.8-10.8)
--- NOTE | 2017-10-03 11:15 | PN- Att Addend ---
Attending Addendum Attending Brief Note Patient seen and examined, transferred out of ICU. He was admitted with acute alkaline intoxication and withdrawal. Patient's speech is slightly gibberish. Vital Signs Date Time Temp Pulse Resp B/P B/P Pulse O2 O2 Flow FiO2 Mean Ox Delivery Rate 10/03 0546 98.0 72 20 144/96 98 Room Air 10/02 2208 98.2 95 18 118/82 95 Room Air 10/02 2123 98.4 92 22 132/92 95 Room Air 10/02 1830 98.7 102 18 152/104 10/02 1630 97.8 94 20 134/90 11 1600 97.8 94 20 134/90 97 Room Air 10/02 1430 81 18 140/94 10/02 1230 98.1 88 18 145/92 on exam; awake, nad. cv; s1, s2, rrr resp; clear abd; soft, nt, bs+ ext; no edema. Laboratory Tests 10/03 0744 Chemistry Sodium (137 - 145 mmol/L) 140 Potassium (3.5 - 5.1 mmol/L) 4.2 Chloride (98 - 107 mmol/L) 107 Carbon Dioxide (22 - 30 mmol/L) 22 Anion Gap (5 - 16) 11 BUN (9 - 20 mg/dL) 11 Creatinine (0.7 - 1.2 mg/dL) 0.7 Estimated GFR (>60 ml/min) > 60 BUN/Creatinine Ratio (7 - 25 %) 15.7 Hematology CBC w Diff NO MAN DIFF REQ WBC (4.8 - 10.8 /CUMM) 6.3 RBC (4.70 - 6.10 /CUMM) 4.30 L Hgb (14.0 - 18.0 G/DL) 15.1 Hct (42 - 52 %) 43.7 MCV (80.0 - 94.0 FL) 101.5 H MCH (27.0 - 31.0 PG) 35.1 H MCHC (33.0 - 37.0 G/DL) 34.6 RDW (11.5 - 14.5 %) 14.5 Plt Count (130 - 400 /CUMM) 95 L MPV (7.4 - 10.4 FL) 6.5 L Gran % (42.2 - 75.2 %) 62.9 Lymphocytes % (20.5 - 51.1 %) 23.1 Monocytes % (1.7 - 9.3 %) 11.4 H Eosinophils % (0 - 5 %) 2.4 Basophils % (0.0 - 2.0 %) 0.2 Absolute Granulocytes (1.4 - 6.5 /CUMM) 3.9 Absolute Lymphocytes (1.2 - 3.4 /CUMM) 1.4 Absolute Monocytes (0.10 - 0.60 /CUMM) 0.7 H Absolute Eosinophils (0.0 - 0.7 /CUMM) 0.1 Absolute Basophils (0.0 - 0.2 /CUMM) 0 A/p; 57-year-old male with past history significant for alcohol use admitted to [facility] ICU initially with alcohol intoxication and withdrawal. Patient was initially started on Ativan drip and afterwards he has been switched to by mouth Librium and transferred to medicine floor. Will start a Librium taper. Continue multivitamin folate and thiamine. Patient continues to remain on when necessary Ativan. We will obtain physical therapy consult. DVT px; ALPS. Lovenox was discontinued yesterday 08/26 to thrombocytopenia.
--- NOTE | 2017-10-03 11:35 | PN- Housestaff ---
Subjective Follow-up For: Alcohol withdrawal Subjective: Overnight transfer from ICU. Admitted to ICU for impending DTs, treated with Ativan drip. CT was overnight less than 12. On Librium 75 mg every 4. Has only required 1 mg of IV Ativan over the last 12 hours. This morning the patient is somewhat confused, able to converse and depressed. He mentions that he is feeling shaky this morning. Endorses no palpitations, no chest pain. No lightheadedness, no dizziness. Review of Systems Constitutional: Reports: see HPI. Objective Last 24 Hrs of Vital Signs/I&O Vital Signs Date Time Temp Pulse Resp B/P B/P Pulse O2 O2 Flow FiO2 Mean Ox Delivery Rate 10/03 0546 98.0 72 20 144/96 98 Room Air 10/02 2208 98.2 95 18 118/82 95 Room Air 10/02 2123 98.4 92 22 132/92 95 Room Air 10/02 1830 98.7 102 18 152/104 10/02 1630 97.8 94 20 134/90 10/02 1600 97.8 94 20 134/90 97 Room Air 10/02 1430 81 18 140/94 10/02 1230 98.1 88 18 145/92 Intake & Output 10/03 1600 10/03 0800 10/03 0000 Intake Total 220 Output Total 400 450 Balance -400 -230 Intake, Oral 220 Number 0 Bowel Movements Output, Urine 400 450 Physical Exam General Appearance: Alert, Cooperative, Mild Distress Cardiovascular: Regular Rate, Normal S1, Normal S2 Lungs: Clear to Auscultation, Normal Air Movement Abdomen: Normal Bowel Sounds, Soft, No Tenderness Extremities: No Clubbing, No Cyanosis Current Medications: Current Medications Sig/Marilee Start time Last Medication Dose Route Stop Time Status Admin Chlordiazepoxide HCl 50 MG Q6 10/03 1200 AC PO Chlordiazepoxide HCl 75 MG Q4H 10/02 1730 DC 10/03 PO 0428 Chlordiazepoxide HCl 75 MG Q4H 10/02 0400 DC 10/02 PO 1323 Enoxaparin Sodium 40 MG DAILY 10/01 1000 DC 10/02 SC 0936 Folic Acid 1 MG DAILY 10/01 1000 AC 10/03 PO 0950 Lorazepam 1 MG Q2P PRN 10/03 1000 AC 10/03 PO 1006 Lorazepam 0 Q1P PRN 10/01 2300 DC 10/03 IV 0826 Multivitamins 1 TAB DAILY 10/01 1000 AC 10/03 PO 0950 Omeprazole 40 MG DAILY AC 10/01 1308 AC 10/03 PO 0429 Last 24 Hrs of Lab/Martin Results Last 24 Hrs of Labs/Mics: Laboratory Tests 10/03/17 0744: Anion Gap 11, Estimated GFR > 60, BUN/Creatinine Ratio 15.7, CBC w Diff NO MAN DIFF REQ, RBC 4.30 L, MCV 101.5 H, MCH 35.1 H, MCHC 34.6, RDW 14.5, MPV 6.5 L, Gran % 62.9, Lymphocytes % 23.1, Monocytes % 11.4 H, Eosinophils % 2.4, Basophils % 0.2, Absolute Granulocytes 3.9, Absolute Lymphocytes 1.4, Absolute Monocytes 0.7 H, Absolute Eosinophils 0.1, Absolute Basophils 0 Assessment/Plan Assessment: 57-year-old gentleman with significant history of alcohol use presented to the hospital requesting alcohol detox, was in ICU for Ativan drip, with subsequent improvement in his CIWA scores and symptoms, now on Gen. medicine scoring low on CIWA. 1. Patient has depressed affect, is sad over what has happened in the past with his family situation, between him with his and losing the house that he visited with his . We will request psychiatry evaluation. Patient lives in [place] and would want AA meetings and outpatient follow-up closer to [place]. Will request social work consult. 2. Will decrease Librium to 50 mg every 6. Await psychiatry recommendations. Will change IV Ativan to by mouth Ativan per CIWA. 3. Thrombocytopenia. Lovenox on hold, for low platelet count. Low probability for age HIT per 4 T score. Related to chronic alcohol use? PPI induced? Full code. Regular diet. DVT prophylaxis-encourage ambulation/mechanical. Problem List: 1. Alcohol withdrawal Pain Ratin Pain Location: None Pain Goal: Remain pain free Pain Plan: PRN Tomorrow's Labs & Rationales: Low platelets
--- NOTE | 2017-10-03 13:59 | Discharge Summary ---
Visit Information Visit Dates Admission Date: 09/30/17 Discharge Date: 10/08/17 Hospital Course Course Attending Physician: Diamond Mclaughlin MD Primary Care Physician: Patient Has No Primary Care Dr Hospital Course: 56-year-old gentleman with history of excessive alcohol use was brought in by son to the ER requesting alcohol detox. Patient's alcohol intake was quantified as half a gallon of bourbon daily. At the time of presentation patient had never requested detox and had no history of alcohol related seizure. He denied any hallucinations at the time of admission, no suicidal or homicidal ideations either. Remote history of nephrolithiasis. Tobacco use for 20 years, smoked cigarettes. Patient was initially admitted with complicated alcohol withdrawal with delirium. 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 1. Alcohol withdrawal. Patient was in ICU and required Ativan drip. This was slowly tapered and the patient was eventually transferred to general medicine service. Patient was transitioned to chlordiazepoxide taper. Over the course of his stay, he did well and was tapered off all benzodiazepines. Patient was seen by psychiatry and they recommended starting the patient on Lexapro. The patient does not have a PCP, we scheduled him a PCP close to where he lives, his appointment on Tuesday at 9:30am, the address was provided to the patient. 2. Transaminitis. This was attributed to patient's excessive alcohol use. These were trended during his stay with eventual trending down, but not reaching normal limits. This will be followed up as an outpatient by patient's PCP. 3. Episode of gout. Patient was started on anti-inflammatory, ibuprofen. His symptom improved, he will be followed as an outpatient to be started on prophylaxis 4. Thrombocytopenia. He was low risk for heparin-induced cytopenia. Regardless his prophylactic anticoagulation for VTE (Lovenox) was discontinued and patient's platelets up trended. He was mobilized, worked with physical therapy and Alps were used for prophylaxis instead. Close outpatient follow-up with intensive outpatient program, follow up with psychiatry and follow-up with a primary care physician in [place]. Allergies: Coded Allergies: NO KNOWN ALLERGIES (NONE 09/30/17) Disposition Summary Disposition Principal Diagnosis: Alcohol withdrawal requiring ICU admission and Ativan drip. Additional Diagnosis: Transaminitis. New diagnoses of depression. Discharge Disposition: home or self care Discharge Instructions General Discharge Information Code Status: Full Code Patient's Diet: Regular diet. Patient's Activity: As tolerated. Follow-Up Instructions/Appts: To follow-up at an intensive outpatient program, in [place]. Follow up with Psychiatry as an outpatient, in [place]. Medications at Discharge Discharge Medications: Start taking the following new medications: Omeprazole (Omeprazole) 20 MG CAPSULE.DR 40 Milligram ORAL DAILY BEFORE BREAKFAST Days = 30 No Refills Folic Acid (Folic Acid) 1 MG TABLET 1 Milligram ORAL DAILY Days = 30 No Refills Multivitamin (One Daily Multivitamin) 1 EACH TABLET 1 Tablet ORAL DAILY Days = 30 No Refills Escitalopram Oxalate (Lexapro) 10 MG TABLET 1 Tablet ORAL DAILY Qty = 30 No Refills Thiamine HCl (Thiamine HCl) 50 MG TABLET 1 Tablet ORAL DAILY Qty = 30 No Refills Copies To: Elisabeth Gil MD Attending MD Review Statement Documenting Attending: Diamond Mclaughlin MD
[2017-10-03 14:57] VITALS: BP 130/90
[2017-10-03 16:00] VITALS: BP 130/90
--- NOTE | 2017-10-03 17:51 | Cons- Psychiatry ---
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 He was indisposed. No call back from housestaff. Will see pt in am.
[2017-10-03 21:43] VITALS: BP 118/70
[2017-10-04] VITALS: BP 118/70
[2017-10-04 02:00] VITALS: BP 118/70
[2017-10-04 07:13] VITALS: BP 120/74
[2017-10-04 08:53] LABS: ABSOLUTE BASOPHIL COUNT 0 /CUMM (0.0-0.2); ABSOLUTE EOSINOPHIL COUNT 0.2 /CUMM (0.0-0.7); ABSOLUTE GRANULOCYTE CT 4.3 /CUMM (1.4-6.5); ABSOLUTE LYMPH COUNT 1.4 /CUMM (1.2-3.4); ABSOLUTE MONOCYTE COUNT 0.8 /CUMM (0.10-0.60); BASOPHIL % 0.3 % (0.0-2.0); EOSINOPHIL % 2.4 % (0-5); HEMATOCRIT 42.7 % (42-52); MEAN CORPUSCULAR HGB 35.4 PG (27.0-31.0); MEAN CORPUSCULAR HGB CONC 34.3 G/DL (33.0-37.0); MEAN PLATELET VOLUME 6.9 FL (7.4-10.4); PLATELET COUNT 97 /CUMM (130-400); RBC DISTRIBUTION WIDTH 14.5 % (11.5-14.5); RED BLOOD CELL CT 4.15 /CUMM (4.70-6.10); WHITE BLOOD CELL COUNT 6.7 /CUMM (4.8-10.8)
--- NOTE | 2017-10-04 09:11 | Cons- Psychiatry ---
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 Consult called for ?depression per Dr Santacruz. Pt is a 57 y/o M with extensive alcohol use up to a liter of scotch daily. Pt was BIB ambulance when son found him acting strangely. Pt had been trying to wean himself from alcohol after he caught the flu and was using alcohol to calm his sx. He started doing shots in the morning. He weaned himself to small amounts of wine and his children brought him in for detox. Pt admitted to ICU for impending DTs placed on ativan drip and subsequently transferred to floor. Pt endorsed depressed sx to housestaff. Pt recently from and lost house. Pt is somewhat confused on exam. States he is a tough man and drinking to be a man runs in his family. Realizes his drinking is a problem and motivated to stay sober. 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 Pt reports his mood is normal but admits he is drunk most of the time so it is hard to assess. 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 Denies stress at home, states he has support. Endorses visual hallucinations, shadows running by. While he denies depression he is willing to start and SSRI and endorses neurovegetative sx, anergia, amotivation, lack of appetite, insomnia.No AH no SI no HI, no bruna. Patient is sitting up in chair, in clau in NAD. Speaks slowly with long latency in giving answers. Some answers are confused are irrelevant. Mood ok Affect slowed on ativan but ?depression TP tangential at times TC family, labs, visual hallucinations, none now. Insight developing Judgment fair seems open to ongoing treatment Laboratory Tests 10/04/17 0705: CBC w Diff Pending, WBC Pending, RBC Pending, Hgb Pending, Hct Pending, MCV Pending, MCH Pending, MCHC Pending, RDW Pending, Plt Count Pending, MPV Pending Current Medications Sig/Marilee Start time Last Medication Dose Stop Time Status Admin Chlordiazepoxide HCl 25 MG Q6 10/04 1200 AC (Librium) Ibuprofen 600 MG 4 TIMES/DAY 10/04 0830 AC (Motrin) 10/04 1801 Lorazepam 1 MG Q2P PRN 10/03 1000 AC 10/03 (Ativan) 1649 Omeprazole 40 MG DAILY AC 10/01 1308 AC 10/04 (Prilosec) 0522 Folic Acid 1 MG DAILY 10/01 1000 AC 10/03 (Folic Acid) 0950 Multivitamins 1 TAB DAILY 10/01 1000 AC 10/03 (Theragran Vitamins) 0950 Orders Procedure Date/time Status CBC WITHOUT DIFFERENTIAL 10/04 0600 Active Heat/Cold Therapy 10/04 UNK Active PT Evaluate & Treat 10/03 UNK Active SOCIAL WORK CONSULT 10/03 UNK Active PSYCHIATRIC CONSULT 10/03 UNK Active MD [facility] CARE (25 MIN) 10/01 UNK Complete Current Medications Sig/Marilee Start time Last Medication Dose Route Stop Time Status Admin Chlordiazepoxide HCl 25 MG Q6 10/04 1200 AC PO Chlordiazepoxide HCl 50 MG Q6 10/03 1200 DC 10/04 PO 0522 Chlordiazepoxide HCl 75 MG Q4H 10/02 1730 DC 10/03 PO 0428 Folic Acid 1 MG DAILY 10/01 1000 AC 10/03 PO 0950 Ibuprofen 600 MG 4 TIMES/DAY 10/04 0830 AC PO 10/04 1801 Ibuprofen 600 MG ONCE ONE 10/04 0100 DC 10/04 PO 10/04 0101 0233 Ibuprofen 600 MG ONCE ONE 10/03 2215 DC 10/03 PO 10/03 2216 2213 Lorazepam 1 MG Q2P PRN 10/03 1000 AC 10/03 PO 1649 Lorazepam 0 Q1P PRN 10/01 2300 DC 10/03 IV 0826 Multivitamins 1 TAB DAILY 10/01 1000 AC 10/03 PO 0950 Omeprazole 40 MG DAILY AC 10/01 1308 AC 10/04 PO 0522 Patient Medication 1 ED ONE ONE 10/03 1445 DC Teaching ED 10/03 1446 Laboratory Tests 10/04/17 0705: CBC w Diff Pending, WBC Pending, RBC Pending, Hgb Pending, Hct Pending, MCV Pending, MCH Pending, MCHC Pending, RDW Pending, Plt Count Pending, MPV Pending Vital Signs Result Date Time Pulse Ox 94 10/04 712 B/P 120/74 10/04 712 Temp 97.2 10/04 712 Pulse 89 10/04 07 Resp 18 10/04 712 O2 Delivery Room Air 10/03 2143 O2 Flow Rate Room Air 10/01 0400 Intake & Output 10/04 0000 10/03 1600 10/03 0800 Intake Total 490 720 Output Total 300 450 400 Balance 190 270 -400 Intake, IV 10 Intake, Oral 480 720 Number 1 Bowel Movements Output, Urine 300 450 400 Liver U/S IMPRESSION: Hepatic steatosis. Borderline enlarged. A/ 57 y/o M with alcohol use disorder and untreated depression. P/ Suggest: 1) Start lexapro 10 mg q daily 2) Pt should be discharged to an intensive outpatient program; he lives in [place], [place]. His benzos will need to be tapered for intake. 3) Pt will require a prescriber in his community to continue his medication. May benefit from naltrexone 50 mg for cravings once his liver enzymes resolve. Thank you for this consult. Please reconsult with any questions. Elisabeth Gaming MD #[id number]
--- NOTE | 2017-10-04 09:41 | PN- Housestaff ---
Davian Khanna 10/04/17 0935: Subjective Follow-up For: Alcohol withdrawal Subjective: Overall improvement since yesterday, good comprehension, able to engage in meaningful conversation this morning. He states that he has bilateral great toe pain, 6/10 in the left and 9/10 in right. No radiation, constant pain. He did receive ibuprofen overnight, with no improvement in symptoms. He is requesting Valium to calm him down. Does have history of gout, his last episode was 6 months ago, he does not remember the treatment he got that that time. No calf tenderness, swelling reported, but he states being feed in his calves bilaterally. No history of blood clots. No shortness of breath. Review of Systems Constitutional: Reports: see HPI. Objective Last 24 Hrs of Vital Signs/I&O Vital Signs Date Time Temp Pulse Resp B/P B/P Pulse O2 O2 Flow FiO2 Mean Ox Delivery Rate 10/04 712 97.2 89 18 120/74 94 10/04 0200 98.2 77 18 118/70 10/04 0000 98.2 77 18 118/70 10/03 2143 98.2 77 18 118/70 97 Room Air 10/03 1600 97.3 90 20 130/90 10/03 1457 97.3 90 20 130/90 96 Room Air Intake & Output 10/04 1600 10/04 0800 10/04 0000 Intake Total 360 490 Output Total 250 300 Balance 110 190 Intake, IV 10 Intake, Oral 360 480 Number 1 Bowel Movements Output, Urine 250 300 Physical Exam General Appearance: Alert, Oriented X3, Mild Distress Cardiovascular: Regular Rate, Normal S1, Normal S2 Lungs: Clear to Auscultation, Normal Air Movement Extremities: No Clubbing, No Cyanosis, No Edema, mild erythema bilaterally on medial aspect of great toes, limited range of motion, pain with passive toe movement. Current Medications: Current Medications Sig/Marilee Start time Last Medication Dose Route Stop Time Status Admin Chlordiazepoxide HCl 25 MG Q6 10/04 1200 AC PO Chlordiazepoxide HCl 50 MG Q6 10/03 1200 DC 10/04 PO 0522 Chlordiazepoxide HCl 75 MG Q4H 10/02 1730 DC 10/03 PO 0428 Folic Acid 1 MG DAILY 10/01 1000 AC 10/03 PO 0950 Ibuprofen 600 MG 4 TIMES/DAY 10/04 0830 AC PO 03/13 1801 Ibuprofen 600 MG ONCE ONE 10/04 0100 DC 10/04 PO 10/04 0101 0233 Ibuprofen 600 MG ONCE ONE 10/03 2215 DC 10/03 PO 10/03 2216 2213 Lorazepam 1 MG Q2P PRN 10/03 1000 AC 10/03 PO 1649 Lorazepam 0 Q1P PRN 10/01 2300 DE 10/03 IV 0826 Multivitamins 1 TAB DAILY 10/01 1000 AC 10/03 PO 0950 Omeprazole 40 MG DAILY AC 10/01 1308 10/04 PO 0522 Patient Medication 1 ED ONE ONE 10/03 1445 DE Teaching ED 10/03 1446 Last 24 Hrs of Lab/Martin Results Last 24 Hrs of Labs/Mics: Laboratory Tests 10/04/17 0705: CBC w Diff NO MAN DIFF REQ, RBC 4.15 L, MCV 103.0 H, MCH 35.4 H, MCHC 34.3, RDW 14.5, MPV 6.9 L, Gran % 64.0, Lymphocytes % 20.8, Monocytes % 12.5 H, Eosinophils % 2.4, Basophils % 0.3, Absolute Granulocytes 4.3, Absolute Lymphocytes 1.4, Absolute Monocytes 0.8 H, Absolute Eosinophils 0.2, Absolute Basophils 0 Assessment/Plan Assessment: 57-year-old gentleman with significant history of alcohol use presented to the hospital requesting alcohol detox, was in ICU for Ativan drip, with subsequent improvement in his CIWA scores and symptoms, now on Gen. medicine scoring low on CIWA. 1. Patient has depressed affect, is sad over what has happened in the past with his family situation, between him with his and losing the house that he bought with his . Appreciate psychiatry visit yesterday, await recommendations. Patient lives in [place] and would want AA meetings and outpatient follow-up closer to [place]. Will request social work consult. 2. Will decrease Librium to 25 mg every 6. Low CIWA scores in last 24 hours, requiring only 2 mg of by mouth Ativan in the last 16 hours. 3. Thrombocytopenia. Lovenox on hold, for low platelet count. Low probability for age HIT per 4 T score. Related to chronic alcohol use? PPI induced? Full code. Regular diet. DVT prophylaxis-encourage ambulation/mechanical. Problem List: 1. Alcohol withdrawal Pain Ratin Pain Location: N/A Pain Goal: Remain pain free Pain Plan: PRN Tomorrow's Labs & Rationales: Not needed Diamond Mclaughlin MD 10/04/17 1131: Attending MD Review Statement Attending Statement Attending MD Statement: examined this patient, discuss w/resident/PA/TELETYPE TECHNICIAN, agreed w/resident/PA/TELETYPE TECHNICIAN, reviewed EMR data (avail), discussed with nursing, discussed with case mgmt, reviewed images, amended to note Attending Assessment/Plan: Patient seen and examined, more awake today. He is complaining of pain in bilateral big toes left more than right. Vital Signs Date Time Temp Pulse Resp B/P B/P Pulse O2 O2 Flow FiO2 Mean Ox Delivery Rate 10/04 07 97.2 89 18 120/74 94 10/04 0200 98.2 77 18 118/70 10/04 0000 98.2 77 18 118/70 10/03 2143 98.2 77 18 118/70 97 Room Air 10/03 1600 97.3 90 20 130/90 10/03 1457 97.3 90 20 130/90 96 Room Air on exam; aox3, nad. cv; s1,s2, rrr resp; clear abd; soft, nt, bs+ ext; no edema rheum: mild erythema on b/l big toes, somewhat limited painful rom. Laboratory Tests 10/04 07 Hematology CBC w Diff NO MAN DIFF REQ WBC (4.8 - 10.8 /CUMM) 6.7 RBC (4.70 - 6.10 /CUMM) 4.15 L Hgb (14.0 - 18.0 G/DL) 14.7 Hct (42 - 52 %) 42.7 MCV (80.0 - 94.0 FL) 103.0 H MCH (27.0 - 31.0 PG) 35.4 H MCHC (33.0 - 37.0 G/DL) 34.3 RDW (11.5 - 14.5 %) 14.5 Plt Count (130 - 400 /CUMM) 97 L MPV (7.4 - 10.4 FL) 6.9 L Gran % (42.2 - 75.2 %) 64.0 Lymphocytes % (20.5 - 51.1 %) 20.8 Monocytes % (1.7 - 9.3 %) 12.5 H Eosinophils % (0 - 5 %) 2.4 Basophils % (0.0 - 2.0 %) 0.3 Absolute Granulocytes (1.4 - 6.5 /CUMM) 4.3 Absolute Lymphocytes (1.2 - 3.4 /CUMM) 1.4 Absolute Monocytes (0.10 - 0.60 /CUMM) 0.8 H Absolute Eosinophils (0.0 - 0.7 /CUMM) 0.2 Absolute Basophils (0.0 - 0.2 /CUMM) 0 A/P; 57-year-old male with past history significant for alcohol use admitted to [facility] ICU initially with alcohol intoxication and withdrawal. Patient was initially started on Ativan drip and afterwards he has been switched to by mouth Librium and transferred to medicine floor. Now having possible gout flare. Will continue the Librium taper. Patient will be started on ibuprofen for possible gout flare. If pain does not improve with ibuprofen then will consider switching to colchicine. Continue multivitamin, folate and thiamine. Physical therapy well and patient has been ordered. Appreciate psych input, please follow recommendations. DVt px; ALPS 2/2 to thrombocytopenia.
[2017-10-04] MEDS ORDERED: LEXAPRO10 M1 PO (13:57)
--- NOTE | 2017-10-04 13:57 | Patient Discharge Instructions ---
Discharge Instructions General Discharge Information You were seen/treated for: Alcohol Detox Anxiety Depression Gout Special Instructions: To be discharged to an intensive outpatient program, in [place]. Follow up with Psychiatry as an outpatient, in [place]. Please follow-up with primary care doctor as described above Diet Continue normal diet: Yes Activity Full Activity/No Limits: Yes Acute Coronary Syndrome Inclusion Criteria At DC or during hospital stay patient has or had the following: ACS DIAGNOSIS No Discharge Core Measures Meds if any: Prescribed or Continued at Discharge Meds if any: NOT Prescribed or Continued at Discharge Congestive Heart Failure Inclusion Criteria At DC or during hospital stay patient has or had the following: CHF DIAGNOSIS No Discharge Core Measures Meds if any: Prescribed or Continued at Discharge Meds if any: NOT Prescribed or Continued at Discharge Cerebrovascular accident Inclusion Criteria At DC or during hospital stay patient has or had the following: CVA/TIA Diagnosis No Discharge Core Measures Meds if any: Prescribed or Continued at Discharge Meds if any: NOT Prescribed or Continued at Discharge Venous thromboembolism Inclusion Criteria VTE Diagnosis No VTE Type NONE VTE Confirmed by (Test) NONE Discharge Core Measures - Per Current guidelines, there needs to be overlap - treatment for the first 5 days of Warfarin therapy. - If discharged on Warfarin prior to 5 days of - overlap therapy, the patient will need to be - assessed for post discharge needs including - *Post discharge parental anticoagulation - *Warfarin and/or parental anticoagulation education - *Follow up date to check INR post discharge At least 5 days overlap therapy as Inpatient No Meds if any: Prescribed or Continued at Discharge Note: Overlap Therapy is Warfarin and Anticoagulant Meds if any: NOT Prescribed or Continued at Discharge
[2017-10-04] MEDS ORDERED: OMEPRAZOLE20 M2 PO (14:01)
[2017-10-04] MEDS ORDERED: ONE DAILY MULT1 EAC2 PO (14:01)
[2017-10-04] MEDS ORDERED: IBUPROFEN600 M1 PO (14:01)
[2017-10-04] MEDS ORDERED: FOLIC ACID1 M1 PO (14:01)
[2017-10-04 15:27] VITALS: BP 123/82
[2017-10-04 22:57] VITALS: BP 117/86
[2017-10-05 06:50] VITALS: BP 121/82
--- NOTE | 2017-10-05 08:00 | PN- Housestaff ---
Subjective Follow-up For: Alcohol withdrawal Subjective: Afebrile, hemodynamically stable, scoring low on CIWA score for the past 24 hour. The patient is mildly anxious about his health status, given that he didn 't see physicians for long time. He is willing to eat healthy and quit drinking , he is also asking for PCP referral post discharge. Review of Systems Constitutional: Reports: no symptoms, see HPI. Objective Last 24 Hrs of Vital Signs/I&O Vital Signs Date Time Temp Pulse Resp B/P B/P Pulse O2 O2 Flow FiO2 Mean Ox Delivery Rate 10/05 1457 98.2 75 18 118/84 95 Room Air 10/05 0650 98.1 73 20 121/82 96 Room Air 10/04 2257 97.8 63 18 117/86 98 Room Air 10/04 1527 97.7 76 18 123/82 96 Room Air Intake & Output 10/05 1600 10/05 0800 10/05 0000 Intake Total 1800 730 250 Output Total 400 300 Balance 1800 330 -50 Intake, IV 10 10 Intake, Oral 1800 720 240 Number 0 1 0 Bowel Movements Output, Urine 400 300 Patient 93.922 kg Weight Physical Exam General Appearance: Alert, Oriented X3, Cooperative, No Acute Distress Skin: No Rashes HEENT: Atraumatic, PERRLA, EOMI, Mucous Membr. moist/pink Neck: No JVD Cardiovascular: Regular Rate, Normal S1, Normal S2, No Murmurs Lungs: Clear to Auscultation, Normal Air Movement Abdomen: Soft, No Tenderness Neurological: Normal Speech Extremities: No Clubbing, No Cyanosis, No Edema Current Medications: Current Medications Sig/Marilee Start time Last Medication Dose Route Stop Time Status Admin Chlordiazepoxide HCl 25 MG Q12 10/05 2200 AC PO Chlordiazepoxide HCl 25 MG Q6 10/04 1200 DC 10/05 PO 0518 Colchicine 600 MCG BID 10/05 1331 AC PO Escitalopram Oxalate 10 MG DAILY 10/04 1145 AC 10/05 PO 0938 Folic Acid 1 MG DAILY 10/01 1000 AC 10/05 PO 0938 Ibuprofen 600 MG 4 TIMES/DAY 10/04 0830 DC 10/04 PO 10/04 1801 1824 Lorazepam 1 MG Q2P PRN 10/03 1000 AC 10/03 PO 1649 Multivitamins 1 TAB DAILY 10/01 1000 AC 10/05 PO 0939 Omeprazole 40 MG DAILY AC 10/01 1308 AC 10/05 PO 0518 Last 24 Hrs of Lab/Martin Results Last 24 Hrs of Labs/Mics: Laboratory Tests 10/05/17 0648: CBC w Diff NO MAN DIFF REQ, RBC 4.11 L, MCV 103.3 H, MCH 35.1 H, MCHC 34.0, RDW 14.6 H, MPV 6.9 L, Gran % 64.0, Lymphocytes % 19.6 L, Monocytes % 12.9 H , Eosinophils % 3.1, Basophils % 0.4, Absolute Granulocytes 3.7, Absolute Lymphocytes 1.1 L, Absolute Monocytes 0.7 H, Absolute Eosinophils 0.2, Absolute Basophils 0 Assessment/Plan Assessment: 57-year-old gentleman with significant history of alcohol use presented to the hospital requesting alcohol detox, was in ICU for Ativan drip, with subsequent improvement in his CIWA scores and symptoms, now on Gen. #Mild depression without SI/HI * We will continue lexapro 10 mg q daily, as per psych * We will follow psychiatric recommendations #Alcohol detox * Scoring low on CIWA * We will decrease Librium to 25 every 12 * We will follow social consult * We will follow psychiatric consult #Thrombocytopenia. * Continue to improve today platelet is 109 * We will follow #Gout * Patient slightly improved with ibuprofen, however he stated it did not work for him in the past. * We will switch ibuprofen to colchicine Full code. Regular diet. DVT prophylaxis-encourage ambulation/mechanical. Problem List: 1. Alcohol withdrawal Pain Ratin Pain Location: feet Pain Goal: Remain pain free Pain Plan: See A&P Tomorrow's Labs & Rationales: See A&P
[2017-10-05 08:18] LABS: ABSOLUTE BASOPHIL COUNT 0 /CUMM (0.0-0.2); ABSOLUTE EOSINOPHIL COUNT 0.2 /CUMM (0.0-0.7); ABSOLUTE GRANULOCYTE CT 3.7 /CUMM (1.4-6.5); ABSOLUTE LYMPH COUNT 1.1 /CUMM (1.2-3.4); ABSOLUTE MONOCYTE COUNT 0.7 /CUMM (0.10-0.60); BASOPHIL % 0.4 % (0.0-2.0); EOSINOPHIL % 3.1 % (0-5); HEMATOCRIT 42.4 % (42-52); MEAN CORPUSCULAR HGB 35.1 PG (27.0-31.0); MEAN CORPUSCULAR VOLUME 103.3 FL (80.0-94.0); MEAN PLATELET VOLUME 6.9 FL (7.4-10.4); PLATELET COUNT 109 /CUMM (130-400); RBC DISTRIBUTION WIDTH 14.6 % (11.5-14.5); RED BLOOD CELL CT 4.11 /CUMM (4.70-6.10); WHITE BLOOD CELL COUNT 5.7 /CUMM (4.8-10.8)
--- NOTE | 2017-10-05 11:10 | PN- Att Addend ---
Attending Addendum Attending Brief Note Patient seen and examined, overall feeling better. More awake. CIWA scores are running low. Still complains of pain in bilateral great toes. Claims that ibuprofen is not helping. Vital Signs Date Time Temp Pulse Resp B/P B/P Pulse O2 O2 Flow FiO2 Mean Ox Delivery Rate 10/05 0650 98.1 73 20 121/82 96 Room Air 10/04 2257 97.8 63 18 117/86 98 Room Air 10/04 1527 97.7 76 18 123/82 96 Room Air on exam; aox3, nad. cv; s1,s2, rrr resp; clear abd; soft, nt, bs+ ext; no edema. Laboratory Tests 10/05 0648 Hematology CBC w Diff NO MAN DIFF REQ WBC (4.8 - 10.8 /CUMM) 5.7 RBC (4.70 - 6.10 /CUMM) 4.11 L Hgb (14.0 - 18.0 G/DL) 14.4 Hct (42 - 52 %) 42.4 MCV (80.0 - 94.0 FL) 103.3 H MCH (27.0 - 31.0 PG) 35.1 H MCHC (33.0 - 37.0 G/DL) 34.0 RDW (11.5 - 14.5 %) 14.6 H Plt Count (130 - 400 /CUMM) 109 L MPV (7.4 - 10.4 FL) 6.9 L Gran % (42.2 - 75.2 %) 64.0 Lymphocytes % (20.5 - 51.1 %) 19.6 L Monocytes % (1.7 - 9.3 %) 12.9 H Eosinophils % (0 - 5 %) 3.1 Basophils % (0.0 - 2.0 %) 0.4 Absolute Granulocytes (1.4 - 6.5 /CUMM) 3.7 Absolute Lymphocytes (1.2 - 3.4 /CUMM) 1.1 L Absolute Monocytes (0.10 - 0.60 /CUMM) 0.7 H Absolute Eosinophils (0.0 - 0.7 /CUMM) 0.2 Absolute Basophils (0.0 - 0.2 /CUMM) 0 A/P; 57-year-old male with past history significant for alcohol use admitted to [facility] ICU initially with alcohol intoxication and withdrawal. Patient was initially started on Ativan drip and afterwards he has been switched to by mouth Librium. On librium taper. Had a gout flare yesterday and was started on ibuprofen. Patient claims ibuprofen is not helping. We'll switch to colchicine. We'll further taper his Librium today. Patient seen by psychiatry, appreciate psych input. Has been started on Lexapro. Patient should have an outpatient follow- up with psychiatry. Would also like to follow-up with a primary care doctor close to his house. We will provide him some information. Continue the rest of the management. Possible discharge in the next 1-2 days.
[2017-10-05 14:57] VITALS: BP 118/84
[2017-10-05 16:00] VITALS: BP 118/84
[2017-10-05 22:49] VITALS: BP 127/80
[2017-10-06] VITALS: BP 127/80
[2017-10-06 06:27] VITALS: BP 145/92
[2017-10-06 08:19] LABS: ABSOLUTE BASOPHIL COUNT 0 /CUMM (0.0-0.2); ABSOLUTE EOSINOPHIL COUNT 0.2 /CUMM (0.0-0.7); ABSOLUTE GRANULOCYTE CT 3.2 /CUMM (1.4-6.5); ABSOLUTE LYMPH COUNT 1.4 /CUMM (1.2-3.4); ABSOLUTE MONOCYTE COUNT 0.8 /CUMM (0.10-0.60); BASOPHIL % 0.6 % (0.0-2.0); EOSINOPHIL % 2.9 % (0-5); HEMATOCRIT 42.4 % (42-52); MEAN CORPUSCULAR HGB 35.4 PG (27.0-31.0); MEAN CORPUSCULAR HGB CONC 34.3 G/DL (33.0-37.0); MEAN CORPUSCULAR VOLUME 103.1 FL (80.0-94.0); MEAN PLATELET VOLUME 6.8 FL (7.4-10.4); PLATELET COUNT 123 /CUMM (130-400); RBC DISTRIBUTION WIDTH 14.4 % (11.5-14.5); RED BLOOD CELL CT 4.11 /CUMM (4.70-6.10); WHITE BLOOD CELL COUNT 5.6 /CUMM (4.8-10.8)
--- NOTE | 2017-10-06 10:25 | PN- Housestaff ---
See Addendum Subjective Follow-up For: -Alcohol withdrawal -Depression -Gout Tele-Events Since Last Visit: N/A Subjective: Afebrile, hemodynamically stable, saturating well on room air. The patient looks mildly depressed and anxious today. He still complaining of feet pain, however it improved a little bit compared to yesterday. He did better with PT compared to yesterday. He denies any other current active complaints. Review of Systems Constitutional: Denies: chills, diaphoresis, fever, malaise, weakness. EENTM: Reports: no symptoms. Cardiovascular: Reports: no symptoms. Respiratory: Reports: no symptoms. Gastrointestinal: Reports: no symptoms. Genitourinary: Reports: no symptoms. Musculoskeletal: Reports: joint pain (first toe bilaterally). Skin: Reports: no symptoms. Objective Last 24 Hrs of Vital Signs/I&O Vital Signs Date Time Temp Pulse Resp B/P B/P Pulse O2 O2 Flow FiO2 Mean Ox Delivery Rate 10/06 0627 97.3 58 18 145/92 97 10/06 0000 97.3 78 20 127/80 10/05 2249 97.3 78 20 127/80 98 Room Air 10/05 1600 98.2 75 18 118/84 10/05 1457 98.2 75 18 118/84 95 Room Air Intake & Output 10/06 1600 10/06 0800 10/06 0000 Intake Total 410 610 Output Total 650 Balance 410 -40 Intake, IV 10 10 Intake, Oral 400 600 Number 1 Bowel Movements Output, Urine 650 Physical Exam General Appearance: Alert, Oriented X3, Cooperative, No Acute Distress Skin: No Rashes, No Breakdown HEENT: Atraumatic, PERRLA, EOMI, Mucous Membr. moist/pink Neck: No JVD Cardiovascular: Regular Rate, Normal S1, Normal S2, No Murmurs Lungs: Clear to Auscultation, Normal Air Movement Abdomen: Soft, No Tenderness Neurological: Normal Speech Extremities: No Clubbing, No Cyanosis, No Edema, bilateral first toe base swelling and tenderness Current Medications: Current Medications Sig/Marilee Start time Last Medication Dose Route Stop Time Status Admin Chlordiazepoxide HCl 10 MG Q12 10/06 1000 AC 10/06 PO 0913 Chlordiazepoxide HCl 25 MG Q12 10/05 2200 DC 10/05 PO 210 Chlordiazepoxide HCl 25 MG Q6 10/04 1200 DC 10/05 PO 0518 Colchicine 600 MCG BID 10/05 1331 AC 10/06 PO 0913 Escitalopram Oxalate 10 MG DAILY 10/04 1145 AC 10/06 PO 0913 Folic Acid 1 MG DAILY 10/01 1000 AC 10/06 PO 0913 Ibuprofen 600 MG ONCE ONE 10/06 0630 DC 10/06 PO 10/06 0631 0716 Ibuprofen 600 MG ONCE ONE 10/05 1915 DC 10/05 PO 10/05 191 1910 Lorazepam 1 MG Q2P PRN 10/03 1000 AC 10/03 PO 1649 Multivitamins 1 TAB DAILY 10/01 1000 AC 10/06 PO 0913 Omeprazole 40 MG DAILY AC 10/01 1308 AC 10/06 PO 0656 Last 24 Hrs of Lab/Martin Results Last 24 Hrs of Labs/Mics: Laboratory Tests 10/06/17 0709: CBC w Diff NO MAN DIFF REQ, RBC 4.11 L, MCV 103.1 H, MCH 35.4 H, MCHC 34.3, RDW 14.4, MPV 6.8 L, Gran % 57.0, Lymphocytes % 25.0, Monocytes % 14.5 H, Eosinophils % 2.9, Basophils % 0.6, Absolute Granulocytes 3.2, Absolute Lymphocytes 1.4, Absolute Monocytes 0.8 H, Absolute Eosinophils 0.2, Absolute Basophils 0 Assessment/Plan Assessment: 57-year-old male with a past medical history of gout who presented for alcohol detox, during his stay he developed bilateral first MTP joints swelling, erythema and tenderness which most likely represent a gout attack. He was also found to be anxious to a mildly depressed for which psychiatric was involved. #Mild depression and anxiety without SI/HI * We will continue lexapro 10 mg q daily, as per psych * We will discuss discharge medication will psych #Alcohol detox * Scoring low on CIWA (0-5) * Librium will be decreased from 25 mg twice a day to 10 mg twice a day * We will continue vitamin supplements * We will follow social consult and psychiatric consult #Thrombocytopenia. * Platelet this morning 123. Platelets continue to improve, we will stop trending platelet #Gout * The patient was switch from ibuprofen to colchicine yesterday, he still complained of pain however noticed slight improvement compared to yesterday. * We will continue colchicine Full code. Regular diet. DVT prophylaxis-encourage ambulation, he refused Alps Problem List: 1. Alcohol withdrawal 2. Gout attack 3. Anxiety 4. Depression Pain Ratin (feet) Pain Location: feet Pain Goal: Remain pain free Pain Plan: Colchicine Tomorrow's Labs & Rationales: No labs needed
[2017-10-06 13:56] VITALS: BP 130/88
--- NOTE | 2017-10-06 14:57 | RADIOLOGY REPORT ---
EXAMINATION: XR FOOT, LEFT CLINICAL INFORMATION: Pain. Mild erythema and swelling. Possible gout. COMPARISON: None TECHNIQUE: Left foot, 3 views. FINDINGS: Bones have normal alignment. No acute fracture, subluxation or focal soft tissue swelling. There are no tophaceous deposits within the foot. 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 No osseous erosion or periostitis. Enthesophytes are observed in multiple locations, including the medial malleolus, base of fifth metatarsal and calcaneus. No evidence of metatarsal stress fracture. IMPRESSION: 1. No evidence of gouty arthritis. 2. 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
[2017-10-06 21:43] VITALS: BP 126/82
[2017-10-07 07:00] VITALS: BP 141/87
--- NOTE | 2017-10-07 07:34 | PN- Housestaff ---
See Addendum Subjective Follow-up For: -Alcohol withdrawal -Depression -Possible Gout attack Tele-Events Since Last Visit: N/A Subjective: Hemodynamically stable, saturating well on room air, and no overnight event. Patient continue to score low in CIWA after tapering Librium. He is anxious about being discharged, he is worried that his condition will deteriorate post discharge. He'll complaining of feet pain with the left being more than the right. Review of Systems Constitutional: Reports: see HPI. Objective Last 24 Hrs of Vital Signs/I&O Vital Signs Date Time Temp Pulse Resp B/P B/P Pulse O2 O2 Flow FiO2 Mean Ox Delivery Rate 10/07 0700 97.5 73 20 141/87 97 Room Air 10/06 2143 97.3 78 19 126/82 96 Room Air 10/06 1356 97.8 65 18 130/88 98 Room Air Intake & Output 10/07 1600 10/07 0800 10/07 0000 Intake Total 720 Output Total 900 650 Balance -180 -650 Intake, Oral 720 Number 0 Bowel Movements Output, Urine 900 650 Physical Exam General Appearance: Alert, Oriented X3, Cooperative, No Acute Distress Skin: No Rashes HEENT: Atraumatic, PERRLA, EOMI, Mucous Membr. moist/pink Neck: No JVD Cardiovascular: Regular Rate, Normal S1, Normal S2, No Murmurs Lungs: Clear to Auscultation, Normal Air Movement Abdomen: Normal Bowel Sounds, Soft, No Tenderness Neurological: Normal Speech, Strength at 5/5 X4 Ext Extremities: No Clubbing, No Cyanosis, No Edema, feet improved, still has mild tenderness more over the left MTP joint Current Medications: Current Medications Sig/Marilee Start time Last Medication Dose Route Stop Time Status Admin Chlordiazepoxide HCl 10 MG Q12 10/06 1000 DC 10/07 PO 10/07 1001 0950 Colchicine 600 MCG BID 10/05 1331 DC 10/06 PO 0913 Escitalopram Oxalate 10 MG DAILY 10/04 1145 AC 10/07 PO 0950 Folic Acid 1 MG DAILY 10/01 1000 AC 10/07 PO 0950 Ibuprofen 400 MG Q6P PRN 10/06 1645 AC 10/07 PO 0512 Lorazepam 1 MG Q2P PRN 10/03 1000 AC 10/03 PO 1649 Multivitamins 1 TAB DAILY 10/01 1000 AC 10/07 PO 0950 Omeprazole 40 MG DAILY 10/01 1308 10/07 PO 0556 Assessment/Plan Assessment: 57-year-old male admitted for alcohol detox. Today is his last day of Librium and he scoring low in CIWA. During his stay he developed bilateral first MTP joints swelling, erythema and tenderness which most likely represent a gout attack. X-ray was done to rule stress fracture, x-ray revealed no evidence of gout however that was after a few days of ibuprofen and colchicine, x-ray showed mild osteoarthritis of the great toe with some valgus deformity. He continues to feel anxious about discharge. Plan * For depression and anxiety without SI/HI, continue lexapro 10 mg q daily. * For Alcohol detox, will give the last dose of Librium 10 mg, continue thiamine , folic acid, and multivitamin supplement * Thrombocytopenia, resolved * For feet pain we will continue ibuprofen and stop colchicine, will be referred to PCP * Discharged Plan, PT will reevaluate this morning, last recommendation was STIR. The patient will be scheduled with PCP to establish care on Tuesday, October 10. He will be also instructed to follow with psychiatric as an outpatient. Full code. Regular diet. DVT prophylaxis-encourage ambulation, he refused Alps Problem List: 1. Alcohol withdrawal 2. Gout attack 3. Depression 4. Anxiety Pain Ratin Pain Location: Feet Pain Goal: Remain pain free Pain Plan: Ibuprofen Tomorrow's Labs & Rationales: No need, possible discharge today
[2017-10-07] MEDS ORDERED: THIAMINE HCL50 M1 PO (10:27)
--- NOTE | 2017-10-07 10:50 | PN- Psychiatry ---
Assessment/Plan Impression: Pt seen and examined at bedside, chart and diagnostics reviewed. Herminio is a 57-year old male with a history of alcohol use disorder and untreated depression who was reassessed this morning for mood after starting Lexapro 10mg daily on 10/04/17. Since starting, reports tolerating medication well with no acute SEs. Reports mood is "a little better." Now reports anxiety and depression of 3/10 (10 being the worst), but continues to express feeling overwhelmed by the idea of maintaining sobriety once discharged from hospital. We discussed outpatient treatment options, including substance abuse rehab and IOP. He seemed more receptive to IOP programming, but expressed feeling nervous about committing to a 3 day a week intensive program d/t his desire of finding steady work. Reviewed the risks of not receiving appropriate treatment upon discharge, including relapse and discussed importance of being connected to psychiatric treatment in order to continue being monitored on recently started Lexapro for anxiety and depression. Patient verbalized wanting to give Lexapro a fair trial once discharged, and would like to discuss IOP further with a psychiatric provider as he comes closer to a discharge date. On exam, patient is alert and oriented to person, place, time and situation. Presents mildly anxious and withdrawn. Rates anxiety and depression a 3/10 (10 being worst). Speech is soft, monotonous. Denies racing thoughts, passive and active SI and HI, AH and VH. No evidence of paranoia or delusional thought content, bruna or hypomania. Thought process is organized, linear. He is future oriented to find employment in the near future. Presently ambivalent about IOP tx for management of etoh use and mood. Reports appetite and sleep are fair. Energy level is "getting better." Insight slowly improving, judgement fair. Suggestion: -continue Lexapro 10mg daily for anxiety/depression. -education provided on [facility] ([address] [place] [address], [place] #[phone]) for medication management/therapeutic support, which is closer to [facility] than [facility]. Benzos will need to be tapered for intake. -continue multivit, folic acid, thiamine. Thank you for this consult. Please reconsult with any questions. Neli Russo, [employer] #[employer] Subjective Subjective: "I feel a little better." Objective Last 24 Hrs of Vital Signs/I&O Vital Signs Date Time Temp Pulse Resp B/P B/P Pulse O2 O2 Flow FiO2 Mean Ox Delivery Rate 10/07 07 97.5 73 20 141/87 97 Room Air 10/06 2142 97.3 78 19 126/82 96 Room Air 10/06 1356 97.8 65 18 130/88 98 Room Air Intake & Output 10/07 1600 10/07 0800 10/07 0000 Intake Total 720 Output Total 900 650 Balance -180 -650 Intake, Oral 720 Number 0 Bowel Movements Output, Urine 900 650 Vital Signs Date Time Temp Pulse Resp B/P B/P Pulse O2 O2 Flow FiO2 Mean Ox Delivery Rate 10/07 07 97.5 73 20 141/87 97 Room Air 10/06 2142 97.3 78 19 126/82 96 Room Air 10/06 1356 97.8 65 18 130/88 98 Room Air Laboratory Tests 10/06 07 Hematology CBC w Diff NO MAN DIFF REQ WBC (4.8 - 10.8 /CUMM) 5.6 RBC (4.70 - 6.10 /CUMM) 4.11 L Hgb (14.0 - 18.0 G/DL) 14.6 Hct (42 - 52 %) 42.4 MCV (80.0 - 94.0 FL) 103.1 H MCH (27.0 - 31.0 PG) 35.4 H MCHC (33.0 - 37.0 G/DL) 34.3 RDW (11.5 - 14.5 %) 14.4 Plt Count (130 - 400 /CUMM) 123 L MPV (7.4 - 10.4 FL) 6.8 L Gran % (42.2 - 75.2 %) 57.0 Lymphocytes % (20.5 - 51.1 %) 25.0 Monocytes % (1.7 - 9.3 %) 14.5 H Eosinophils % (0 - 5 %) 2.9 Basophils % (0.0 - 2.0 %) 0.6 Absolute Granulocytes (1.4 - 6.5 /CUMM) 3.2 Absolute Lymphocytes (1.2 - 3.4 /CUMM) 1.4 Absolute Monocytes (0.10 - 0.60 /CUMM) 0.8 H Absolute Eosinophils (0.0 - 0.7 /CUMM) 0.2 Absolute Basophils (0.0 - 0.2 /CUMM) 0 Physical Exam: see housestaff notes Current Medications: Current Medications Sig/Marilee Start time Last Medication Dose Route Stop Time Status Admin Chlordiazepoxide HCl 10 MG Q12 10/06 1000 DC 10/07 PO 10/07 1001 0950 Colchicine 600 MCG BID 10/05 1331 DC 10/06 PO 0913 Escitalopram Oxalate 10 MG DAILY 10/04 1145 AC 10/07 PO 0950 Folic Acid 1 MG DAILY 10/01 1000 AC 10/07 PO 0950 Ibuprofen 400 MG Q6P PRN 10/06 1645 AC 10/07 PO 0512 Lorazepam 1 MG Q2P PRN 10/03 1000 AC 10/03 PO 1649 Multivitamins 1 TAB DAILY 10/01 1000 AC 10/07 PO 0950 Omeprazole 40 MG DAILY AC 10/01 1308 AC 10/07 PO 0556 Results Last 24 Hrs of Labs/Mics: see in meditech
[2017-10-07 14:30] VITALS: BP 135/77
[2017-10-07 22:26] VITALS: BP 124/80
--- NOTE | 2017-10-08 06:09 | PN- Housestaff ---
Subjective Follow-up For: -Alcohol withdrawal -Depression -Possible Gout attack Tele-Events Since Last Visit: N/A Subjective: Afebrile, hemodynamically stable, saturating well on room air, and no overnight event. Patient is doing well off Librium. He is anxious about being discharged. He worried that his symptom will deteriorate post discharge. The patient was seen walking around the floor with the walker. Review of Systems Constitutional: Reports: see HPI. Objective Last 24 Hrs of Vital Signs/I&O Vital Signs Date Time Temp Pulse Resp B/P B/P Pulse O2 O2 Flow FiO2 Mean Ox Delivery Rate 10/07 2225 97.6 68 124/80 98 Room Air 10/07 2225 101.4 10/07 1430 97.3 71 20 135/77 98 Room Air 10/07 1049 Room Air Room Air 10/07 0700 97.5 73 20 141/87 97 Room Air Intake & Output 10/08 0800 10/08 0000 10/07 1600 Intake Total 600 Output Total Balance 600 Intake, Oral 600 Physical Exam General Appearance: Alert, Oriented X3, Cooperative, No Acute Distress Skin: No Rashes HEENT: Atraumatic, PERRLA, EOMI, Mucous Membr. moist/pink Neck: No JVD Cardiovascular: Regular Rate, Normal S1, Normal S2, No Murmurs Lungs: Clear to Auscultation, Normal Air Movement Abdomen: Normal Bowel Sounds, Soft, No Tenderness Neurological: Normal Speech Extremities: No Clubbing, No Cyanosis, No Edema Current Medications: Current Medications Sig/Marilee Start time Last Medication Dose Route Stop Time Status Admin Chlordiazepoxide HCl 10 MG Q12 10/06 1000 DC 10/07 PO 10/07 1001 0950 Diclofenac Sodium 1 JULITO 4 TIMES/DAY 10/07 1100 AC 10/07 TOP 2119 Escitalopram Oxalate 10 MG DAILY 10/04 1145 AC 10/07 PO 0950 Folic Acid 1 MG DAILY 10/01 1000 AC 10/07 PO 0950 Ibuprofen 400 MG Q6P PRN 10/06 1645 AC 10/07 PO 2124 Lorazepam 1 MG Q2P PRN 10/03 1000 AC 10/07 PO 2224 Multivitamins 1 TAB DAILY 10/01 1000 AC 10/07 PO 0950 Omeprazole 40 MG DAILY AC 10/01 1308 AC 10/07 PO 0556 Assessment/Plan Assessment: 57-year-old male admitted for alcohol detox. He continued to score low after day seen Librium yesterday. He complained of feet pain that was most likely secondary to gout attack. X-ray was done to rule stress fracture, x-ray showed mild osteoarthritis of the great toe with some valgus deformity. He continues to feel anxious about discharge. Plan * For depression and anxiety without SI/HI, continue lexapro 10 mg q daily. * For alcohol detox, he is off benzodiazepine, continued score low * Thrombocytopenia, resolved * For feet pain we will continue ibuprofen, will be referred to PCP * Discharged Plan, PT will reevaluate this morning, last recommendation was STR. He is already scheduled to see PCP on Tuesday, October 10. He will be also instructed to follow with psychiatric as an outpatient. Full code. Regular diet. DVT prophylaxis-encourage ambulation, he refused Alps Problem List: 1. Anxiety 2. Depression 3. Gout attack 4. Alcohol withdrawal Pain Ratin Pain Location: feet Pain Goal: Remain pain free Pain Plan: See A&P Tomorrow's Labs & Rationales: None as patient most likely discharged today
[2017-10-08 07:29] VITALS: BP 138/92
[2017-10-08 08:35] VITALS: BP 138/92
[2017-10-08] MEDS ORDERED: OMEPRAZOLE20 M2 PO (09:58)
[2017-10-08] MEDS ORDERED: FOLIC ACID1 M1 PO (09:58)
[2017-10-08] MEDS ORDERED: ONE DAILY MULT1 EAC2 PO (09:58)
[2017-10-08] MEDS ORDERED: LEXAPRO10 M1 PO (09:58)
== END 2017-10-08 13:33 | DRG 775 ==
LOC: ERH 12:20 → 2NB 17:38 → ERHI 17:38 → EDBEDREQ 18:38 → ERHI 18:44 → ENRESERV 18:56 → ENTRNSPT 21:12 → EDTRNSPTSTS 21:19 → EDTRNSPT 21:19 → CMPTRNSPT 21:44 → CRI 22:35 → 2NB 10-02 21:47 → ENPENDDIS 10-08 10:30 → 2NB 10-08 13:33
PROVIDERS: Internal Medicine; Internal Medicine Hematology & Oncology; Physician Assistant Medical; Student in an Organized Health Care Education/Training Program
DX: F10.231 Alcohol dependence with withdrawal delirium (principal); K70.0 Alcoholic fatty liver; Y90.0 Blood alcohol level of less than 20 mg/100 ml; R74.0 Nonspecific elevation of levels of transaminase and lactic acid dehydrogenase [LDH]; M10.9 Gout, unspecified; Z87.891 Personal history of nicotine dependence; F12.90 Cannabis use, unspecified, uncomplicated; R94.31 Abnormal electrocardiogram [ECG] [EKG]; D73.89 Other diseases of spleen; F41.9 Anxiety disorder, unspecified; F32.9 Major depressive disorder, single episode, unspecified; D69.6 Thrombocytopenia, unspecified
CPT/HCPCS: 2NBSP; CCU; 36415; 36592; 73630-LT; 80307; 81001; 82436; 87086; 93005; 93010; 96361; 96374; 96376; 97110-GO; 97112-GO; 97116-GO; 97161-GP; 97530-GO; G0480; J0696; J1650; J2060; J3490; J7060